=== PATIENT | female | born 1965 | race Caucasian/White ===

== ENCOUNTER 2018-03-03 10:58 | Emergency (ER) | payer OTHER ==
[~2018-03-03] VITALS: Ht 175.3 cm; Wt 96.2 kg
[~2018-03-03 10:58] MED LIST: HYDROCODON-ACE1 EA11 PO; IBUPROFEN800 MG PO; NORCO 5-325 TA1 EACH PO; NORCO 7.5-3251 EACH PO
== END 2018-03-03 14:44 | disposition home or self-care (01) ==
LOC: ED 10:58
DX: M54.9 Dorsalgia, unspecified (principal); F17.200 Nicotine dependence, unspecified, uncomplicated
CPT/HCPCS: 36415; 80053; 81001; 83690; 85025; 99283

== ENCOUNTER 2019-08-29 15:51 | Emergency (ER) | payer OTHER ==
[~2019-08-29] VITALS: Ht 175.3 cm; Wt 96.2 kg
--- OUTSIDE RECORDS SUMMARY | ~2019-08-29 | XMS | Clinical Summary ---
Demographics + + + | Address | [address] [place] [address] | | | [place] [address] | + + + | Home Phone | | + + + | Preferred Language | Unknown | + + + | Marital Status | | + + + | Spiritism Affiliation | Unknown | + + + | Race | Unknown | + + + | Ethnic Group | Unknown | + + + Author + + + | Author | [facility] | | | and [place] | + + + | Organization | [facility] | | | and [place] | + + + | Address | Unknown | + + + | Phone | Unavailable | + + + Support + + + + + | Name | Relationship | Address | Phone | + + + + + | Myrna Prado | ROB[place]E | [address] | | | | | [place] [facility] [place], [place] | | | | | [address] | | + + + + + Care Team Providers + +------+ + | Care Switchboard Manager Name | Role | Phone | + +------+ + | No, Physician | PCP | Unavailable | + +------+ + Allergies No Known Allergies Medications + + + +---------+------+------+-------+ | Medication | Sig | Dispensed | Refills | Star | End | Statu | | | | | | t | Date | s | | | | | | Date | | | + + + +---------+------+------+-------+ | rosuvastatin | Take 40 mg by mouth | | 0 | | | Activ | | (CRESTOR) 40 MG | Daily. | | | | | e | | tablet | | | | | | | + + + +---------+------+------+-------+ | diltiazem (MATZIM | Take 360 mg by mouth | | 0 | | | Activ | | LA) 360 MG 24 hr | Daily. | | | | | e | | tablet | | | | | | | + + + +---------+------+------+-------+ Active Problems + + + | Problem | Noted Date | + + + | Hypertension | 07/15/2011 | + + + | Hyperlipidemia | 07/15/2011 | + + + Immunizations + + + + | Name | Administration Dates | Next Due | + + + + | INFLUENZA PF 20 Y OR | 01/18/2011 | | | >,TRIVALENT | | | | RECOMBINANT | | | + + + + | TDAP, (ADOL/ADULT) | 11/16/2015 | | + + + + Family History + + +------+ + | Medical History | Relation | Name | Comments | + + +------+ + | Cancer | Father | | | + + +------+ + | Cancer | Mother | | thyroid | + + +------+ + | High blood pressure | Mother | | | + + +------+ + | High cholesterol | Mother | | | + + +------+ + + +------+ + + | Relation | Name | Status | Comments | + +------+ + + | Brother | | Alive | x 3 healthy | + +------+ + + | Father | | | colon cancer | + +------+ + + | Mother | | Alive | | + +------+ + + Social History + +-------+ +--------+------+ | Tobacco Use | Types | Packs/Day | Years | Date | | | | | Used | | + +-------+ +--------+------+ | Current Every Day | | 0.5 | | | | Smoker | | | | | + +-------+ +--------+------+ + +---+---+---+ | Smokeless Tobacco: | | | | | Never Used | | | | + +---+---+---+ + + +---------+ + | Alcohol Use | Drinks/Week | oz/Week | Comments | + + +---------+ + | No | | | | + + +---------+ + + + + | Sex Assigned at | Date Recorded | | | | + + + | Not on file | | + + + Last Filed Vital Signs + + + + + | Vital Sign | Reading | Time Taken | Comments | + + + + + | Blood Pressure | 145/95 | 11/16/2015 2:37 PM | | | | | MDT | | + + + + + | Pulse | 97 | 11/16/2015 2:37 PM | | | | | MDT | | + + + + + | Temperature | 36.1 C (97 F) | 11/16/2015 2:37 PM | | | | | MDT | | + + + + + | Respiratory Rate | 18 | 11/16/2015 2:37 PM | | | | | MDT | | + + + + + | Oxygen Saturation | 97% | 11/16/2015 2:37 PM | | | | | MDT | | + + + + + | Inhaled Oxygen | - | - | | | Concentration | | | | + + + + + | Weight | 89.8 kg (198 lb) | 11/16/2015 2:37 PM | | | | | MDT | | + + + + + | Height | 175.3 cm (5' 9") | 11/16/2015 2:37 PM | | | | | MDT | | + + + + + | Body Mass Index | 29.24 | 11/16/2015 2:37 PM | | | | | PDT | | + + + + + Plan of Treatment + + + + + | Health Maintenance | Due Date | Last | Comments | | | | Done | | + + + + + | Cervical Cancer | | | | | Screening (Pap) | 8 | | | + + + + + | Breast Cancer | | | | | Screening | 3 | | | + + + + + | Vaccine: Zoster (1 | | | | | of 2) | 8 | | | + + + + + | Vaccine: Influenza | | 01/19/20 | | | (#1) | 0 | 11 | | + + + + + | Vaccine: | | 11/16/19 | | | Dtap/Tdap/Td (2 - | 6 | 16 | | | Td) | | | | + + + + + Results Not on filefrom Last 3 Months Insurance + +--------+ +--------+ +---------+--------+ | Payer | Benefi | Subscriber | Effect | Phone | Address | Type | | | t Plan | ID | leanna | | | | | | / | | Dates | | | | | | Group | | | | | | + +--------+ +--------+ +---------+--------+ | [employer] | INTERM | [id number] | [phone] | | Indemn | | | [place] | | 014-Pr | 9 | | ity | | | N | | esent | | | | | | CLAIMS | | | | | | | | | | | | | | | | MISSOU | | | | | | | | LA WC | | | | | | + +--------+ +--------+ +---------+--------+ | [facility] | PHP | [id number] | 02/27/19 | [phone] | | PPO | | PLAN | PERSON | | 16-Pre | 5 | | | | | AL | | sent | | | | | | OPEN | | | | | | | | OPTION | | | | | | + +--------+ +--------+ +---------+--------+ | [facility] | UNITED | [id number] | 02/27/19 | [phone] | | PPO | | | | | 12-Pre | 2 | | | | | HEALTH | | sent | | | | | | CARE | | | | | | | | PPO | | | | | | + +--------+ +--------+ +---------+--------+ + +--------+ +--------+ + + | Guarantor Name | Accoun | Relation to | Date | Phone | Billing Address | | | t Type | Patient | of | | | | | | | | | | + +--------+ +--------+ + + | Wilda Nicole | Person | Self | [birth year] | [address] | | | al/Fam | | 1965 | [phone] | [place], [place] | | | [place] | | | 0 (Home) | [address] | + +--------+ +--------+ + + | Wilda Nicole | Person | Self | [birth year] | [address] | | | al/Fam | | 1965 | [phone] | [place], [place] | | | [place] | | | 7 (Home) | [address] | + +--------+ +--------+ + + | Wilda Nicole | Worker | Self | [birth year] | [address] | | | s Comp | | 1965 | [phone] | [place] | | | | | | 7 (Home) | [id number] | | | | | | [phone] | | | | | | | 0 (Work) | | + +--------+ +--------+ + + Advance Directives + + + + + | Type | Date Recorded | Patient | Explanation | | | | Principal Cyber Engineer | | + + + + + | Power of | | | | | Interior Surface Insulation Worker | | | | + + + + + | Advance | 11/16/2015 4:19 | | | | Directive | PM | | | + + + + +
--- OUTSIDE RECORDS SUMMARY | ~2019-08-29 | XMS | Encounter Summary ---
Demographics + + + | Address | [address] [place] [address] | | | [place] [address] | + + + | Home Phone | | + + + | Preferred Language | Unknown | + + + | Marital Status | | + + + | Mandaen Affiliation | Unknown | + + + | Race | Unknown | + + + | Ethnic Group | Unknown | + + + Author + + + | Author | [facility] | | | and [place] | + + + | Organization | [facility] | | | and [place] | + + + | Address | Unknown | + + + | Phone | Unavailable | + + + Support + + + + + | Name | Relationship | Address | Phone | + + + + + | Myrna Prado | [place]E | [address] | | | | | [place] | | | | | [address] | | + + + + + Care Team Providers + +------+ + | Care Transition Assistant Name | Role | Phone | + +------+ + | Juan Ramon Gray | PCP | | + +------+ + Reason for Visit +--------+--------+ + | Reason | Onset | Comments | | | Date | | +--------+--------+ + | Other | 11/09/ | referral appt. | | | 2011 | | +--------+--------+ + Encounter Details +--------+ + + + + | Date | Type | Department | Care Team | Description | +--------+ + + + + | 11/09/ | Telephone | [facility] | Katrina Francisco | Other (referral | | 2011 | | Group - [facility] | Harish, CONTINUOUS DRYOUT OPERATOR HELPER [address] | appt.) | | | | Family Medicine | [facility]. | | | | | [address] [facility] | [place], [place] | | | | | [place], [place] | [address] | | | | | [address] | | | | | | [phone] | | | +--------+ + + + + Social History + +-------+ +--------+------+ [...] on file | | + + + documented as of this encounter Miscellaneous Notes Telephone Encounter - Katrina Francisco LPN - 11/10/2011 3:34 PM TCalled patient and checked to make sure she was seen on the [facility]. She states she seen Dr. Kalyani beal and was given a steroid injection and it really seems to of worked well for her, has shelton crystal helped the pain, informed if any problems to call, she agrees. documented in this encounter Plan of Treatment Not on filedocumented as of this encounter Visit Diagnoses Not on filedocumented in this encounter"
--- OUTSIDE RECORDS SUMMARY | ~2019-08-29 | XMS | Encounter Summary ---
Demographics + + + | Address | [address] [place] [address] | | | [place] [address] | + + + | Home Phone | | + + + | Preferred Language | Unknown | + + + | Marital Status | | + + + | Zoroastrian Affiliation | Unknown | + + + | Race | Unknown | + + + | Ethnic Group | Unknown | + + + Author + + + | Author | [facility] | | | and [place] | + + + | Organization | [facility] | | | and [place] | + + + | Address | Unknown | + + + | Phone | Unavailable | + + + Support + + + + + | Name | Relationship | Address | Phone | + + + + + | Myrna Prado | [place]E | [address] | | | | | [place], [place] | | | | | [address] | | + + + + + Care Team Providers + +------+ + | Care Title Searcher Name | Role | Phone | + +------+ + | Juan Ramon Gray | PCP | | + +------+ + Encounter Details +--------+ + + + + | Date | Type | Department | Care Team | Description | +--------+ + + + + | 07/14/ | Abstract | [facility] | Juan Ramon Gray, | Hypertension; | | 2011 | | Group [facility] | [place] [address] | Hyperlipidemia | | | | Family Medicine | [place] [address] | | | | | [address] | [phone] | | | | | [place] | | | | | | [address] | | | | | | [phone] | | | +--------+ + + + + Social History + +-------+ +--------+------+ | Tobacco Use | Types | Packs/Day | Years | Date | | | | | Used | | + +-------+ +--------+------+ | Never Assessed | | | | | + +-------+ +--------+------+ + + + | Sex Assigned at | Date Recorded | | | | + + + | Not on file | | + + + documented as of this encounter Last Filed Vital Signs + + + + + | Vital Sign | Reading | Time Taken | Comments | + + + + + | Blood Pressure | 129/89 | 01/18/2011 12:38 PM | | | | | MST | | + + + + + | Pulse | - | - | | + + + + + | Temperature | - | - | | + + + + + | Respiratory Rate | - | - | | + + + + + | Oxygen Saturation | - | - | | + + + + + | Inhaled Oxygen | - | - | | | Concentration | | | | + + + + + | Weight | 88 kg (194 lb) | 01/18/2011 12:38 PM | | | | | MST | | + + + + + | Height | - | - | | + + + + + | Body Mass Index | - | - | | + + + + + documented in this encounter Plan of Treatment Not on filedocumented as of this encounter Visit Diagnoses + + | Diagnosis | + + | Hypertension Unspecified essential hypertension | + + | Hyperlipidemia Other and unspecified hyperlipidemia | + + documented in this encounter"
--- OUTSIDE RECORDS SUMMARY | ~2019-08-29 | XMS | Encounter Summary ---
Demographics + + + | Address | [address] [place] [address] | | | [place] [address] | + + + | Home Phone | | + + + | Preferred Language | Unknown | + + + | Marital Status | | + + + | Druze Affiliation | Unknown | + + + | Race | Unknown | + + + | Ethnic Group | Unknown | + + + Author + + + | Author | [facility] | | | and [place] | + + + | Organization | [facility] | | | and [place] | + + + | Address | Unknown | + + + | Phone | Unavailable | + + + Support + + + + + | Name | Relationship | Address | Phone | + + + + + | Myrna Prado | [place]E | [address] | | | | | [place] | | | | | [address] | | + + + + + Care Team Providers + +------+ + | Care Firing Pin Gauger Name | Role | Phone | + +------+ + | Juan Ramon Gray | PCP | | + +------+ + Encounter Details +--------+ + + + + | Date | Type | Department | Care Team | Description | +--------+ + + + + | 01/18/ | Hospital | [address] | Unknown, | | | 2010 | Encounter | [facility] | MD Gabriel . | | | | | GENERIC OP CONV DEPT | [phone] | | | | | [address] | | | | | | [place] | | | | | | [address] | | | | | | [phone] | | | +--------+ + + + [...] + + documented as of this encounter Plan of Treatment Not on filedocumented as of this encounter Procedures + +--------+ + + + | Procedure Name | Priori | Date/Time | Associated Diagnosis | Comments | | | ty | | | | + +--------+ + + + | EGFR | Routin | 01/18/2011 | | Results for this | | | e | 2:42 PM | | procedure are in the | | | | MST | | results section. | + +--------+ + + + | LIPID PANEL | Routin | 01/18/2011 | | Results for this | | | e | 2:42 PM | | procedure are in the | | | | MST | | results section. | + +--------+ + + + | TSH, REFLEX FREE T4 | Routin | 01/18/2011 | | Results for this | | | e | 2:42 PM | | procedure are in the | | | | MST | | results section. | + +--------+ + + + | CBC NO DIFFERENTIAL | Routin | 01/18/2011 | | Results for this | | | e | 2:42 PM | | procedure are in the | | | | MST | | results section. | + +--------+ + + + | COMPREHENSIVE | Routin | 01/18/2011 | | Results for this | | METABOLIC PANEL | e | 2:42 PM | | procedure are in the | | | | MST | | results section. | + +--------+ + + + documented in this encounter Results TSH, Reflex Free T4 (01/18/2011 2:42 PM MST) + +-------+ + + + | Component | Value | Ref Range | Performed | Pathologist | | | | | At | Signature | + +-------+ + + + | TSH | 1.490 | 0.40 - 5.00 | [facility] | | | | | uIU/ml | [facility] | [facility] | | | | | | [facility] | | + +-------+ + + + + + | Specimen | + + | | + + + + + + + | Performing | Address | City/State/Zipcode | Phone Number | | Organization | | | | + + + + + | [facility] | [address] | [place] [address] | [phone] | | [facility] | | | | + + + + + | [facility] | | | | | [facility] | | | | | LABORATORY | | | | + + + + + EGFR (01/18/2011 2:42 PM MST) + + + + + + | Component | Value | Ref Range | Performed | Pathologist | | | | | At | Signature | + + + + + + | eGFR if not | >60Comment: Estimated | >60 mL/min/ | [facility] | | | | GFR reported in | | [facility] | | | [facility]AI | mL/min/1.73m2. For | | HOSPITAL | | | | Americans, | | LABORATORY | | | | multiply the Estimated | | | | | | GFR by 1.21.The | | | | | | Estimated GFR is not | | | | | | valid for patients | | | | | | under20 years of | | | | | | age.Estimated Glomerular | | | | | | Filtration Rate (eGFR) | | | | | | results are likely to be | | | | | | unreliable in patients | | | | | | with rapidly changing | | | | | | renal function or with | | | | | | malnutrition. Some | | | | | | medications may lead to | | | | | | erroneous Estimated GFR | | | | | | results. | | | | + + + + + + + + | Specimen | + + | | + + + + + + + | Performing | Address | City/State/Zipcode | Phone Number | | Organization | | | | + + + + + | [facility] | [address] | [place] [address] | [phone] | | [facility] | | | | + + + + + | [facility] | | | | | [facility] | | | | | LABORATORY | | | | + + + + + Lipid Panel (01/18/2011 2:42 PM MST) + + + + + + | Component | Value | Ref Range | Performed | Pathologist | | | | | At | Signature | + + + + + + | Cholesterol | 155Comment: <200: | 75 - 200 mg/dL | [facility] | | | | [id number] to | | [facility] | | | | 239: Borderline | | [facility] | | | | high>239: | | LABORATORY | | | | High | | | | + + + + + + | Triglycerid | 106Comment: <150: | 30 - 150 mg/dL | [facility] | | | es | [id number] to | | [facility] | | | | 199: Borderline | | [facility]OS[facility] | | | | [id number] to 499: | | LABORATORY | | | | High>499: | | | | | | Very High | | | | + + + + + + | HDL | 59Comment: <40: | 40 - 59 mg/dL | [facility] | | | | Low40 to 59: | | [facility] | | | | Normal>59: | | [facility] | | | | HighHDL Cholesterol | | LABORATORY | | | | greater than or equal to | | | | | | 60 mg/dL is considered | | | | | | a "negative" risk | | | | | | factor, serving to | | | | | | remove one risk factor | | | | | | from the total count. | | | | + + + + + + | LDL, | 75Comment: <100: | 0 - 129 mg/dL | [facility] | | | Calculated | Oudssuh381 to 129: | | [facility] | | | | Near or above | | HOSPITAL | | | | [id number] to 159: | | LABORATORY | | | | Borderline [id number] to | | | | | | 189: High>189: | | | | | | Very HighFor | | | | | | further detail, see | | | | | | National Cholesterol | | | | | | Education Program Adult | | | | | | Treatment Panel III (ATP | | | | | | III) Guidelines.AJIME | | | | | | 2000; 285: 4479-0164; | | | | | | orhttp://www.nhlbi.nih | | | | | | .gov (ATP III | | | | | | Cholesterol Guidelines) | | | | + + + + + + + + | Specimen | + + | | + + + + + + + | Performing | Address | City/State/Zipcode | Phone Number | | Organization | | | | + + + + + | [facility] | [address] | [place] [address] | [phone] | | [facility] | | | | + + + + + | [facility] | | | | | [facility] | | | | | LAB[facility]ATORY | | | | + + + + + CBC no Differential (01/18/2011 2:42 PM MST) + + + + + + | Component | Value | Ref Range | Performed | Pathologist | | | | | At | Signature | + + + + + + | WBC | 8.4 | 4.0 - 11.0 K/uL | [facility] | | | | | | [facility] | | | | | | [facility] | | + + + + + + | RBC | 5.36 (H) | 3.80 - 5.20 | [facility] | | | | | M/uL | [facility] | | | [facility] | | | | | | [facility] | | + + + + + + | Hemoglobin | 15.4 | 11.6 - 15.5 | [facility] | | | | | g/dL | [facility] | | | | [facility] | | | | | | [facility] | | + + + + + + | Hematocrit | 46.6 (H) | 35.0 - 46.0 % | [facility] | | | | | | [facility] | | | | | | [facility] | | + + + + + + | MCV | 86.8 | 80.0 - 100.0 fL | [facility] | | | | | | [facility] | | | | [facility] | | | | | | [facility] | | + + + + + + | MCH | 28.7 | 27.0 - 34.0 pg | [facility] | | | | | | [facility] | [facility] | | | | | | [facility] | | + + + + + + | MCHC | 33.1 | 32.0 - 35.5 | [facility] | | | | | g/dL | [facility] | | | | [facility] | | | | | | [facility] | | + + + + + + | RDW-CV | 13.6 | 11.0 - 15.0 % | [facility] | | | | | | [facility] | | | | | | [facility] | | + + + + + + | Platelet | 248 | 150 - 400 K/uL | [facility] | | | Count | | | [facility] | | | | | | [facility] | | + + + + + + | % | 61.3 | 38 - 78 % | [facility] | | | Neutrophils | | | [facility] | [facility] | | | | | | [facility] | | + + + + + + | LYMPH % | 30.6 | 21 - 49 % | [facility] | | | | | | [facility] | | | | | | [facility] | | + + + + + + | % Monocytes | 5.6 | 3 - 11 % | [facility] | | | | | | [facility] | | | | | | [facility] | | + + + + + + | % | 1.7 | 0 - 7 % | [facility] | | | Eosinophils | | | [facility] | | [facility] | | | | | | [facility] | | + + + + + + | % Basophils | 0.8 | 0.0 - 2.0 % | [facility] | | | | | | [facility] | | | | | | [facility] | | + + + + + + | Absolute | 5.1 | 2.0 - 7.3 K/uL | [facility] | | | Neutrophils | | | [facility] | | | | | | [facility] | | + + + + + + | Absolute | 2.6 | 1.0 - 3.4 K/uL | [facility] | | | Lymphocytes | | | [facility] | [facility] | | | | | | [facility] | | + + + + + + | Absolute | 0.5 | 0.0 - 0.8 K/uL | [facility] | | | Monocytes | | | [facility] | | | | | | [facility] | | + + + + + + | Absolute | 0.1 | 0.0 - 0.5 K/uL | [facility] | | | Eosinophils | | | [facility] | | | | | | [facility] | | + + + + + + | Absolute | 0.1 | 0.0 - 0.1 K/uL | [facility] | | | Basophils | | | [facility] | [facility] | | | | | | [facility] | | + + + + + + + + | Specimen | + + | | + + + + + + + | Performing | Address | City/State/Zipcode | Phone Number | | Organization | | | | + + + + + | [facility] | [address] | [place] [address] | [phone] | | [facility] | | | | + + + + + | [facility] | | | | | [facility] | | | | | [facility] | | | | + + + + + Comprehensive Metabolic Panel (01/18/2011 2:42 PM MST) + +---------+ + + + | Component | Value | Ref Range | Performed | Pathologist | | | | | At | Signature | + +---------+ + + + | Glucose | 95 | 65 - 99 mg/dL | [facility] | | | | | | [facility] | | | | | | [facility] | | + +---------+ + + + | BUN | 9 | 7 - 23 mg/dL | [facility] | | | | | | [facility] | | | | | | [facility] | | + +---------+ + + + | Creatinine | 0.8 | 0.6 - 1.2 mg/dL | [facility] | | | | | | [facility] | | | | | | [facility] | | + +---------+ + + + | BUN/Creatin | 11.25 | 10.00 - 20.00 | [facility] | | | ine Ratio | | RATIO | [facility] | | | | | | [facility] | | + +---------+ + + + | Na | 139 | 135 - 145 | [facility] | | | | | mmol/L | [facility] | | | | | | [facility] | | + +---------+ + + + | K | 4.0 | 3.5 - 5.0 | [facility] | | | | | mmol/L | [facility] | | | | | | [facility] | | + +---------+ + + + | Cl | 106 | 98 - 109 mmol/L | [facility] | | | | | | [facility] | | | | | | [facility] | | + +---------+ + + + | CO2 | 24.0 | 22.0 - 31.0 | [facility] | | | | | mmol/L | [facility] | [facility] | | | | | | [facility] | | + +---------+ + + + | Anion Gap | 9 | 5 - 16 mmol/L | [facility] | | | | | | [facility] | [facility] | | | | | | [facility] | | + +---------+ + + + | Calcium | 9.3 | 8.5 - 10.5 | [facility] | | | | | mg/dL | [facility] | | | | | | [facility] | | + +---------+ + + + | Total | 8.6 (H) | 6.3 - 8.0 g/dL | [facility] | | | Protein | | | [facility] | | | | | | [facility] | | + +---------+ + + + | Albumin | 4.7 | 3.5 - 5.0 g/dL | [facility] | | | | | | [facility] | | | | | | [facility] | | + +---------+ + + + | Globulin | 3.9 (H) | 1.3 - 3.4 g/dL | [facility] | | | | | | [facility] | | | | | | [facility] | | + +---------+ + + + | Albumin/Gauri | 1.2 | 1 - 2 RATIO | [facility] | | | bulin Ratio | | | [facility] | | | | | | [facility] | | + +---------+ + + + | Bilirubin | 0.5 | 0.1 - 1.5 mg/dL | [facility] | | | Total | | | [facility] | | | | | | [facility] | | | | | | LABORATORY | | + +---------+ + + + | AST | 23 | 5 - 40 U/L | [facility] | | | | | | [facility] | | | | | | LABORATORY | | + +---------+ + + + | ALT | 46 | 5 - 50 U/L | [facility] | | | | | | [facility] | | | | | [facility] | | | | | | LABORATORY | | + +---------+ + + + | Alkaline | 72 | 38 - 110 U/L | [facility] | | | Phosphatase | | | [facility] | | | | | [facility] | | | | | | LABORATORY | | + +---------+ + + + | Osmolality | 276 | 275 - 300 | [facility] | | | Calc | | mOsm/kg | [facility] | | | [facility] | | | | | | LABORATORY | | + +---------+ + + + + + | Specimen | + + | | + + + + + + + | Performing | Address | City/State/Zipcode | Phone Number | | Organization | | | | + + + + + | [facility] | [address] | [place] [address] | [phone] | | [facility] | | | | + + + + + | [facility] | | | | | [facility] | | | | | LABORATORY | | | | + + + + + documented in this encounter Visit Diagnoses Not on filedocumented in this encounter
--- OUTSIDE RECORDS SUMMARY | ~2019-08-29 | XMS | Encounter Summary ---
Demographics + + + | Address | [address] [place] [address] | | | [place] [address] | + + + | Home Phone | | + + + | Preferred Language | Unknown | + + + | Marital Status | | + + + | Islam Affiliation | Unknown | + + + | Race | Unknown | + + + | Ethnic Group | Unknown | + + + Author + + + | Author | [facility] | | | and [place] | + + + | Organization | [facility] | | | and [place] | + + + | Address | Unknown | + + + | Phone | Unavailable | + + + Support + + + + + | Name | Relationship | Address | Phone | + + + + + | Myrna Prado | ROBBIE | [address] | | | | | [place] | | | | | [address] | | + + + + + Care Team Providers + +------+ + | Care E Commerce Project Manager Name | Role | Phone | + +------+ + | Juan Ramon Luna | PCP | | + +------+ + Reason for Visit + +--------+ + | Reason | Onset | Comments | | | Date | | + +--------+ + | Appointment | 10/27/ | | | | 2011 | | + +--------+ + Encounter Details +--------+ + + + + | Date | Type | Department | Care Team | Description | +--------+ + + + + | 10/27/ | Telephone | [facility] | Katrina Corrales | Appointment | | 2011 | | Group - Latrell Younger | Harish, COMPUTER ASSEMBLER [address] | | | | | Family Medicine | [facility]. | | | | | [address] [facility] | [place], [place] | | | | | [place], [place] | [address] | | | | | [address] | | | | | | [phone] | | | +--------+ + + + [...] encounter Miscellaneous Notes Telephone Encounter - Katrina Corrales LPN - 11/01/2011 3:09 PM MDTPatient seen today in the office, referral had not been processed at this time. Ortho was called and appointme nt setup for this , 11-03-11 at 0945 w/ Dr. Lemos. elephone Encounter - Katrina Corrales LPN - 10/28/2011 9:48 AM MDTPatient called and informed of the MRI results and that Juan Ramon would do a referral to Ortho. Informed patient either [facility] or Ortho will call her w/ her appointme nt. elephone En counter - Ktarina Corrales LPN - 10/28/2011 9:47 AM MDTMessage copied by CHER CORRALES on MonOct 28, 2011 0999 ------ Message from: JUAN RAMON LUNA Created: MonOct 25, 2011 1350 There appears to have a irregular signal to the Supraspinatus. Will make a referral to ortho for evaluation. documented in this encounter Plan of Treatment Not on filedocumented as of this encounter Visit Diagnoses Not on filedocumented in this encounter"
--- OUTSIDE RECORDS SUMMARY | ~2019-08-29 | XMS | Encounter Summary ---
Demographics + + + | Address | [address] [place] [address] | | | [place] [address] | + + + | Home Phone | | + + + | Preferred Language | Unknown | + + + | Marital Status | | + + + | Yazidi Affiliation | Unknown | + + + | Race | Unknown | + + + | Ethnic Group | Unknown | + + + Author + + + | Author | [facility] | | | and [place] | + + + | Organization | [facility] | | | and [...] [place] | | | | | [address] | | + + + + + Care Team Providers + +------+ + | Care Education Paraprofessional Name | Role | Phone | + +------+ + | Juan Ramon Luna | PCP | | + +------+ + Reason for Visit + + + | Reason | Comments | + + + | Shoulder Pain | Right, states the last couple weeks can not hardly lift her arm, | | | does not know how she injuried it. | + + + | Insomnia | d/t shoulder pain | + + + Encounter Details +--------+---------+ + + + | Date | Type | Department | Care Team | Description | +--------+---------+ + + + | 10/03/ | Office | [facility] | Juan Ramon Luna, | Bursitis (Primary | | 2011 | Visit | Group - Latrell Younger | [place] [address] | Dx) | | | | Family Medicine | [place] [address] | | | | | [address] | [phone] | | | | | [place], [place] | | | | | | [address] | | | | | | [phone] | | | +--------+---------+ + + + Social History + +-------+ [...] + + + | Blood Pressure | 114/70 | 10/04/2011 2:57 PM | | | | | MDT | | + + + + + | Pulse | 80 | 10/04/2011 2:57 PM | | | | | MDT | | + + + + + | Temperature | 37.3 C (99.2 F) | 10/04/2011 2:57 PM | | | | | MDT | | + + + + + | Respiratory Rate | 18 | 10/04/2011 2:57 PM | | | | | MDT | | + + + + + | Oxygen Saturation | - | - | | + + + + + | Inhaled Oxygen | - | - | | | Concentration | | | | + + + + + | Weight | 86.2 kg (190 lb) | 10/04/2011 2:57 PM | | | | | MDT | | + + + + + | Height | - | - | | + + + + + | Body Mass Index | - | - | | + + + + + documented in this encounter Patient Instructions Patient Instructions Juan Ramon Luna PA - 10/04/2011 4:00 PM Yin | Back SP BURSITIS The larger joints of the body are surrounded by bursa . These are small, flat fluid-f illed sacs which help the gliding motion of the muscles and tendons over the joints. Bursitis is an inflammation of the bursa due to injury, overuse of the joint, or infection of the bursa itself. Symptoms include pain and tenderness over a joint that is made worse wi th movement. Bursitis is treated with an anti-inflammatory medicine and by resting the joint. More sever e cases require injection of medicine directly into the bursa. HOME CARE: 1. Apply an ice pack (ice cubes in a plastic bag, wrapped in a towel) over the injured area for 20 minutes every 1-2 hours the first day. Continue this 3-4 times a day until the pain and swelling improves. 2. Rest the painful joint and protect it from movement. This will allow the inflammation to heal faster. 3. You may take ibuprofen (Motrin, Advil) or naproxen (Aleve, Naprosyn) to treat pain and i nflammation, unless another medicine was prescribed. If you can't take these medicines, acet aminophen (Tylenol) may help with the pain, but does not treat inflammation. [NOTE: If you h ave chronic liver or kidney disease or ever had a stomach ulcer or GI bleeding, talk with yo doctor before using these medicines.] 4. As your symptoms improve, begin gradual motion at the joint. Do not overuse the joint, w hich may cause the symptoms to flare up again. FOLLOW UP with your doctor if not improving after three days of treatment. GET PROMPT MEDICAL ATTENTION if any of the following occur: Redness over the painful area Increasing pain or swelling at the joint Fever of 100.4F (38C) or higher, or as directed by your healthcare provider [phone] [facility], [address] [place] [address], [place] [address]. All rights reserve d. This information is not intended as a substitute for professional medical care. Always fo llow your healthcare professional's instructions. documented in this encounter Progress Notes Juan Ramon Luna PA - 10/11/2011 11:33 AM MDT Addended by: JUAN RAMON LUNA on: 10/11/2011 11:33 Modules accepted: Orders uan Ramon Luna PA - 10/04/2011 3:16 PM MDT Subjective: Patient ID: Wilda Baker is a 45 y.o. female. Shoulder Pain Incident location: States very busy unsure when and where the pain started. The right shoul walter is affected. The incident occurred more than 1 week ago (on and off for 3-4 years.). The injury mechanism was repetitive motion and overhead work. The quality of the pain is descri bed as burning, cramping, aching, shooting and stabbing. The pain does not radiate. The pain is at a severity of 6/10 (pain level depends on activity.). The pain is moderate. Associate d symptoms include muscle weakness. Pertinent negatives include no chest pain, numbness or t ingling. The symptoms are aggravated by movement, overhead lifting and palpation. She has tr ied ice for the symptoms. The treatment provided mild relief. Patient's medications, allergies, past medical, surgical, social and family histories were reviewed and updated as appropriate. Review of Systems Cardiovascular: Negative for chest pain. Neurological: Negative for tingling and numbness. Objective: Physical Exam Constitutional: She appears well-developed and well-nourished. Cardiovascular: Normal rate and regular rhythm. Pulmonary/Chest: Effort normal and breath sounds normal. Musculoskeletal: Right shoulder: She exhibits decreased range of motion, tenderness and bony tenderness . She exhibits no effusion, no crepitus and no deformity. Neurological: She is alert. Skin: Skin is warm and dry. The shoulder was sterily cleanse and injection of 5 cc of Kenalog and 2% lidocaine was used . Patient tolerated procedure well. Consent form was obtain prior to procedure. Assessment: 1. Bursitis Plan: Will have the patient use a sling for the next 1-2 days. Return on an as needed basis. documented in this en counter Miscellaneous Notes Miscellaneous - ILDEFONSO NAJERA - 10/04/2011 1:00 AM MDT documented in this encounter Plan of Treatment Not on filedocumented as of this encounter Visit Diagnoses + + | Diagnosis | + + | Bursitis - Primary Other bursitis disorders | + + documented in this encounter"
--- OUTSIDE RECORDS SUMMARY | ~2019-08-29 | XMS | Encounter Summary ---
Demographics + + + | Address | [address] [place] [address] | | | [place] [address] | + + + | Home Phone | | + + + | Preferred Language | Unknown | + + + | Marital Status | | + + + | Jain Affiliation | Unknown | + + + | Race | Unknown | + + + | Ethnic Group | Unknown | + + + Author + + + | Author | [facility] | | | and [place] | + + + | Organization | [facility] | | | and [place] | + + + | Address | Unknown | + + + | Phone | Unavailable | + + + Support + + + + + | Name | Relationship | Address | Phone | + + + + + | Myrna Prado | ROBBIE | [address] | | | | | [place] | | | | | [address] | | + + + + + Care Team Providers + +------+ + | Care Sap Abap Developer Name | Role | Phone | + +------+ + | No, Physician | PCP | Unavailable | + +------+ + Reason for Visit + + + | Reason | Comments | + + + | Knee Pain | | + + + Encounter Details +--------+ + + + + | Date | Type | Department | Care Team | Description | +--------+ + + + + | 08/10/ | Emergency | [facility] | Mounika Trung | Knee contusion, | | 2013 | | [facility] | MD Ron [address] | right, initial | | | | EMERG[facility]ENTER | [facility] | encounter (Primary | | | | [address] [facility] | [place] [address] | Dx) | | | | [place], [place] | [phone] | | | | | [address] | | | | | | [phone] | | | +--------+ + + + [...] + + + | Blood Pressure | 140/80 | 08/10/2013 8:05 AM | | | | | MDT | | + + + + + | Pulse | 90 | 08/10/2013 8:05 AM | | | | | MDT | | + + + + + | Temperature | 36.2 C (97.2 F) | 08/10/2013 6:39 AM | | | | | MDT | | + + + + + | Respiratory Rate | 16 | 08/10/2013 8:05 AM | | | | | MDT | | + + + + + | Oxygen Saturation | 98% | 08/10/2013 8:05 AM | | | | | MDT | | + + + + + | Inhaled Oxygen | - | - | | | Concentration | | | | + + + + + | Weight | 74.8 kg (165 lb) | 08/10/2013 6:39 AM | | | | | MDT | | + + + + + | Height | 175.3 cm (5' 9") | 08/10/2013 6:39 AM | | | | | MDT | | + + + + + | Body Mass Index | 24.37 | 08/10/2013 6:39 AM | | | | | PDT | | + + + + + documented in this encounter Discharge Instructions AttachmentsThe following attachments cannot be sent through Care Everywhere.CONTUSION, ROBERT R EXTREMITY (CROATIAN)documented in this encounter Medications at Time of Discharge + + + +---------+--------+ + | Medication | Sig | Dispensed | Refills | Start | End Date | | | | | | Date | | + + + +---------+--------+ + | diltiazem (MATZIM | Take 360 mg by mouth | | 0 | | | | LA) 360 MG 24 hr | Daily. | | | | | | tablet | | | | | | + + + +---------+--------+ + | rosuvastatin | Take 40 mg by mouth | | 0 | | | | (CRESTOR) 40 MG | Daily. | | | | | | tablet | | | | | | + + + +---------+--------+ + documented as of this encounter ED Notes Trung Ribera MD - 08/10/2013 6:54 AM MDT [facility] Wilda Baker Emergency Department Encounter Note [id number] Juan Ramon Gray History CC: Knee Pain ED Triage Notes Vero Trotter RN 08/10/2013 6:39 Patient states she fell on hurting her right knee. Patient states swelling has go ne down but continuing to have pain. No blood thinners HPI: Wilda Baker is a 47 y.o. female who presents to the ED for evaluation of right kne e injury. This occurred 2 days ago at work. She tripped on a box and fell forward landing on her right knee. She is able to walk on this but has had persistent discomfort. It's wor se when she is walking or bends the knee. She does have some swelling. She feels like ther e is a groove that runs down the kneecap and thinks this might be a fracture. She denies an y numbness or tingling. She did not sustain any other significant injury. She has no histo ry of prior knee injury. Review of Systems: A complete review of systems was negative for acute findings, except as noted in the HPI Past Medical History: Past Medical History Diagnosis Date Hypertension Hyperlipidemia Surgical History: Past Surgical History Procedure Date Carpal tunnel release 2008 Medications: Current Outpatient Rx Name Route Sig Dispense Refill DILTIAZEM HCL ER COATED BEADS 360 MG PO TB24 Oral Take 360 mg by mouth Daily. ROSUVASTATIN CALCIUM 40 MG PO TABS Oral Take 40 mg by mouth Daily. ALLERGIES: No Known Allergies Social History: She reports that she has been smoking. She has never used smokeless tobac co.. She reports that she does not drink alcohol. Family History: Noncontributory. Physical Exam VITAL SIGNS: BP 137/77 | Pulse 93 | Temp 36.2 C (97.2 F) (Temporal) | Resp 18 | Ht 1.75 3 m (5' 9") | Wt 74.844 kg (165 lb) | BMI 24.36 kg/m2 | SpO2 96% Constitutional: Well-developed. Well-nourished. No acute distress. Non-toxic. Skin: Warm, Dry, No rash. Extremities: Tenderness over the patella with some bruising. There is crepitance in the bu rsa with flexion extension. The knee is stable to varus and valgus stressing. No laxity of the ACL. Negative Lockman's. Intact distal pulses, no edema, no cyanosis. Neurologic: Alert & oriented. Normal motor function. Normal sensory function. No focal def icits noted. ED Course: Wilda Baker presented to the ED for evaluation, and she was triaged to room 17. I revie wed the nursing notes, and she was evaluated by me. Records Reviewed: Nursing notes. Studies: Pertinent labs & imaging studies were reviewed. (See chart for details) Imaging: Knee X-Ray Interpreted by: Trung Ribera Findings: Right knee: No fracture, Normal alignment, No foreign body ED Course, Procedures, and Medical Decision Making: This patient presents for evaluation of right knee injury. She is neurovascularly intact. There is no signs of compartment syndrome. There is no deformity. Radiograph is negative for any signs of patellar fracture. I suspect she has a contusion or possibly some prepatel lar bursitis. At this point she stable for outpatient followup. Indications for emergency reevaluation were reviewed. Impression: 1. Knee contusion, right, initial encounter Disposition and Plan: The patient was discharged home in stable condition. Trung Ribera MD 08/10/13 0737 docum ented in this encounter Miscellaneous Notes Plan of Care - [facility]ONSO [facility] - 08/12/2013 1:00 AM MDT D Triage Notes - Vero Trotter RN - 08/10/2013 6:38 AM MDTPatient states she fell on hurting her right knee. Patient states swelling has gone down but continuing to have pain. No blood thinners documented in this encounter Plan of Treatment Not on filedocumented as of this encounter Procedures + +--------+ + + + | Procedure Name | Priori | Date/Time | Associated Diagnosis | Comments | | | ty | | | | + +--------+ + + + | XR KNEE RIGHT 4 + VW | STAT | 08/10/2013 | | Results for this | | | | 7:28 AM | | procedure are in the | | | | MDT | | results section. | + +--------+ + + + documented in this encounter Results XR Knee Right 4 + Vw (08/10/2013 7:28 AM MDT) + + | Specimen | + + | | + + + + + | Impressions | Performed At | + + + | Prepatellar soft tissue swelling noted. No current evidence for | MISCELANIOUS | | fracture or significant malalignment. [facility] | LAB | + + + + + + | Narrative | Performed At | + + + | DATE OF : 1965 STUDY: AP notch, sunrise and | MISCELANIOUS | | lateral views (four views), right knee. DATE OF SERVICE: | LAB | | 08/10/2013, 0718 hours. INDICATION: Knee pain. The patient | | | is status post fall with predominant patellar pain. FINDINGS: | | | There is some mild prepatellar soft tissue swelling. No displaced | | | patellar fracture is currently identified. I do not identify | | | evidence for joint effusion. | | + + + + + | Procedure Note | + + | Villa Salcido MD - 08/10/2013 8:12 AM MARYLU DATE OF : 1965 | | | | STUDY: AP notch, sunrise and lateral views (four views), right knee. | | | | DATE OF SERVICE: 08/10/2013, 0718 hours. | | | | INDICATION: Knee pain. The patient is status post fall with | | predominant patellar pain. | | | | FINDINGS: There is some mild prepatellar soft tissue swelling. No | | displaced patellar fracture is currently identified. I do not identify | | evidence for joint effusion. | | | | IMPRESSION: Prepatellar soft tissue swelling noted. No current | | evidence for fracture or significant malalignment. | | | | [facility] | + + + +---------+ + + | Performing | Address | City/State/Zipcode | Phone Number | | Organization | | | | + +---------+ + + | [facility] | | | [phone] | + +---------+ + + | [facility] LAB | | | [phone] | + +---------+ + + documented in this encounter Visit Diagnoses + + | Diagnosis | + + | Knee contusion, right, initial encounter - Primary | + + documented in this encounter
--- OUTSIDE RECORDS SUMMARY | ~2019-08-29 | XMS | Encounter Summary ---
Demographics + + + | Address | [address] [place] [address] | | | [place] [address] | + + + | Home Phone | | + + + | Preferred Language | Unknown | + + + | Marital Status | | + + + | Taoism Affiliation | Unknown | + + + | Race | Unknown | + + + | Ethnic Group | Unknown | + + + Author + + + | Author | [facility] | | | and [place] | + + + | Organization | [facility] | | | and [place] | + + + | Address | Unknown | + + + | Phone | Unavailable | + + + Support + + + + + | Name | Relationship | Address | Phone | + + + + + | Myrna Prado | ROBBIE | [address] | | | | | [place] | | | | | [address] | | + + + + + Care Team Providers + +------+ + | Care Mock Up Assembler Name | Role | Phone | + +------+ + | Juan Ramon Gray | PCP | | + +------+ + Reason for Referral Evaluate & Treat (Routine) +--------+ + + + + + | Status | Reason | Specialty | Diagnoses / | Referred By | Referred To | | | | | Procedures | Contact | Contact | +--------+ + + + + + | Closed | Specialty | Orthopedic | Diagnoses | Isaac | [place], | | | Services | Surgery | Shoulder | ROSIE Delatorre | Todd Pedersen MD | | | Required | | pain | [address] | [address] | | | | | | [address] | [address] | | | | | | [place] | [place] | | | | | | [address] | [address] Phone: | | | | | | Phone: | [phone] | | | | | | [phone] | Fax: | | | | | | Fax: | [phone] | | | | | | [phone] | | +--------+ + + + + + Reason for Visit + + + | Reason | Comments | + + + | Follow-up | | + + + Encounter Details +--------+---------+ + + + | Date | Type | Department | Care Team | Description | +--------+---------+ + + + | 10/31/ | Office | [facility] | Juan Ramon Gray, | Shoulder pain | | 2012 | Visit | Group - Latrell Batistaek | [place] [address] | (Primary Dx) | | | | Family Medicine | [place] [address] | | | | | [address] | [phone] | | | | | [place], [place] | | | | | | [address] | | | | | | [phone] | | | +--------+---------+ + + + [...] + + + | Blood Pressure | 126/78 | 11/01/2011 11:16 AM | | | | | MDT | | + + + + + | Pulse | 72 | 11/01/2011 11:16 AM | | | | | MDT | | + + + + + | Temperature | 37.1 C (98.7 F) | 11/01/2011 11:16 AM | | | | | MDT | | + + + + + | Respiratory Rate | 20 | 11/01/2011 11:16 AM | | | | | MDT | | + + + + + | Oxygen Saturation | - | - | | + + + + + | Inhaled Oxygen | - | - | | | Concentration | | | | + + + + + | Weight | 86.7 kg (191 lb 3.2 | 11/01/2011 11:16 AM | | | | oz) | MDT | | + + + + + | Height | - | - | | + + + + + | Body Mass Index | - | - | | + + + + + documented in this encounter Progress Notes Juan Ramon Gray PA - 11/02/2011 6:03 PM MDTFormatting of this note might be different fro m the original. Subjective: Patient ID: Wilda Baker is a 46 y.o. female. Shoulder Pain The incident occurred at work. The right shoulder is affected. The incident occurred more t pereyra 1 week ago. The injury mechanism was repetitive motion. The quality of the pain is descr ibed as aching and cramping. The pain radiates to the right arm. The pain is at a severity o f 6/10 (worse with movement.). Pertinent negatives include no chest pain, muscle weakness, n umbness or tingling. The symptoms are aggravated by movement and overhead lifting. She has t ried NSAIDs for the symptoms. The treatment provided mild relief. Patient's medications, allergies, past medical, surgical, social and family histories were reviewed and updated as appropriate. Review of Systems Respiratory: Negative for shortness of breath. Cardiovascular: Negative for chest pain. Musculoskeletal: Positive for arthralgias. Negative for back pain and joint swelling. Neurological: Negative for tingling and numbness. Objective: Physical Exam Constitutional: She appears well-developed and well-nourished. No distress. Cardiovascular: Normal rate and normal heart sounds. Pulmonary/Chest: Effort normal and breath sounds normal. Musculoskeletal: She exhibits tenderness. She exhibits no edema. Right shoulder: She exhibits decreased range of motion, tenderness, bony tenderness an d pain. She exhibits no swelling, no effusion, no crepitus, no deformity, normal pulse and n ormal strength. Arms: Skin: She is not diaphoretic. Assessment: 1. Shoulder pain Ambulatory referral to Orthopedic Surgery Plan: Note was given to her at this time for limited hours and duties at work. documented in this en counter Plan of Treatment + + +--------+ + + | Name | Type | Priori | Associated Diagnoses | Order Schedule | | | | ty | | | + + +--------+ + + | Ambulatory referral | Outpatient | Routin | Shoulder pain | Ordered: 11/01/2011 | | to Orthopedic | Referral | e | | | | Surgery | | | | | + + +--------+ + + documented as of this encounter Visit Diagnoses + + | Diagnosis | + + | Shoulder pain - Primary Pain in joint, shoulder region | + + documented in this encounter"
--- OUTSIDE RECORDS SUMMARY | ~2019-08-29 | XMS | Encounter Summary ---
Demographics + + + | Address | [address] [place] [address] | | | [place] [address] | + + + | Home Phone | | + + + | Preferred Language | Unknown | + + + | Marital Status | | + + + | Nondenominational Affiliation | Unknown | + + + | Race | Unknown | + + + | Ethnic Group | Unknown | + + + Author + + + | Author | [facility] | | | and [place] | + + + | Organization | [facility] | | | and [place] | + + + | Address | Unknown | + + + | Phone | Unavailable | + + + Support + + + + + | Name | Relationship | Address | Phone | + + + + + | Myrna Prado | ROBBIE | [address] | | | | | [place] | | | | | [address] | | + + + + + Care Team Providers + +------+ + | Care Social Work Instructor Name | Role | Phone | + +------+ + | No, Physician | PCP | Unavailable | + +------+ + Reason for Visit + + + | Reason | Comments | + + + | Animal Bite | | + + + Encounter Details +--------+ + + + + | Date | Type | Department | Care Team | Description | +--------+ + + + + | 11/15/ | Emergency | [facility] | Harriet, | Dog bite of arm, | | 2015 | | [facility] [place] | Josh Cottrell DO | right, initial | | | | [facility] [address] | encounter (Primary | | | | [address] [place] | Dx) | | | | [place] | [id number] | | | | | [address] | | | | | | [phone] | | | +--------+ + + + [...] + documented in this encounter Discharge Instructions Josh Elizabeth, - 11/16/2015Ignacio hillary need to come out in 7-10 days. Having concerning symptoms including fever severe arm pain return to the ER otherwise can f ollow up with her regular doctor. AttachmentsThe following attachments cannot be sent through Care Everywhere.DOG BITE (ENGLI CHRISTA)LACERATION, SCALP: SUTURES OR PATRICIA (CHINESE)documented in this encounter Medications at Time of Discharge + + + +---------+ + + | Medication | Sig | Dispensed | Refills | Start | End Date | | | | | | Date | | + + + +---------+ + + | diltiazem (MATZIM | Take 360 mg by mouth | | 0 | | | | LA) 360 MG 24 hr | Daily. | | | | | | tablet | | | | | | + + + +---------+ + + | rosuvastatin | Take 40 mg by mouth | | 0 | | | | (CRESTOR) 40 MG | Daily. | | | | | | tablet | | | | | | + + + +---------+ + + | | Take 1 tablet by | 14 | 0 | 11/16/19 | | | amoxicillin-clavulan | mouth 2 times daily | tablet | | 16 | 6 | | ate (AUGMENTIN) | for 7 days. | | | | | | 875-125 mg per | | | | | | | tablet | | | | | | + + + +---------+ + + documented as of this encounter ED Notes Josh Larios, - 11/16/2015 4:40 PM MDTAssociated Order(s): LACERATION RE PAIR [facility]: Emergency Department Note PATIENT: Wilda Nicole ([id number]) : 1965 DATE OF SERVICE: 11/16/15 AUTHOR: Josh Larios DO 11/16/2015 PCP: No Physician on file The patient arrived by: Private vehicle History is obtained by: Patient Chief complaint: Dog bite History of present illness: Patient complaining of a dog bite happened at her mother's home it was a known dog vaccinations. Patient was visiting her mother with her dog and mother s tarts present around the started fighting she tried to separate them was bitten in the right forearm. Patient was seen at [facility] but sent to the ER due to lack of material s to close the wound. Patient is not up-to-date with her tetanus. Patient has no other com plaints at this time denies loss of sensation or use of the hand. Panel control was called and dog was put down. ROS: 10 point review of systems is negative aside from that listed in history of present il lness. PMH: has a past medical history of Hypertension and Hyperlipidemia. PSH: has past surgical history that includes Carpal tunnel release; cyst removal; and ort hopeic surgery. Family History: family history includes Cancer in her father and mother; High blood pressu re in her mother; High cholesterol in her mother. Social History: reports that she has been smoking. She has never used smokeless tobacco. She reports that she does not drink alcohol or use illicit drugs. Current Medications: Current Outpatient Rx Name Route Sig Dispense Refill amoxicillin-clavulanate (AUGMENTIN) 875-125 mg per tablet Oral Take 1 tablet by mouth 2 times daily for 7 days. 14 tablet 0 diltiazem (MATZIM LA) 360 MG 24 hr tablet Oral Take 360 mg by mouth Daily. rosuvastatin (CRESTOR) 40 MG tablet Oral Take 40 mg by mouth Daily. Allergies: No Known Allergies PHYSICAL EXAM: VITAL SIGNS: Temp: 36.1 C (97 F) Pulse: 97 Resp: 18 SpO2: 97 % BP: (!) 145/95 mmHg GENERAL: Alert and oriented 4 minimal distress well groomed well-nourished well-hydrated HEAD: Normocephalic and atraumatic. EYES: Pupils equal, round and reactive to light and accommodation. Extraocular movements a re intact. NECK: Supple, no lymphadenopathy, full range of motion without pain. No nuchal rigidity CHEST: Nontender to palpation. No crepitus. No external signs of trauma. LUNGS: Clear to auscultation bilaterally. No accessory muscle use. Answering questions wi th full sentences. CARDIAC: Regular rate and rhythm without murmur, rub or gallop, pulses intact x4 ABDOMEN: Soft, nontender, nondistended, no organomegaly, no pulsatile mass, bowel tones are present. MUSCULOSKELETAL: Large 5 cm gaping lack right forearm full-thickness skin with subcu tissue involved exposed muscle sheath no sheath involvement, but has exposed lacerated vein with h emostasis NEURO: Cranial nerves II through XII are grossly intact. Normal sensation throughout derma tomes of the body, moving all extremities. SKIN: Clear without rash, no purpura or petechia. RADIOLOGY: Recent Results (from the past 360 hour(s)) XR Forearm Right 2 Vw Narrative Procedure: XR FOREARM RIGHT 2 VW Indication: ANIMAL BITE Date of Service: 11/16/2015 3:08 pm Two views of the right forearm are provided. No prior studies available for comparison. I do not see any fractures, dislocations or bony lesions. Joint spaces appear normal. There is soft tissue injury involving the mid forearm. No radiopaque foreign body seen. No abnormal gas collections. IMPRESSION- Views of the right forearm show 1. Soft tissue injury to the forearm. No foreign bodies or abnormal gas collections. 2. Bone structures normal. This report electronically signed Jose Ramon Mayes MD 11/16/2015 Dictated: 11/16/2015 3:17:56 PM Lac Repair Date/Time: 11/16/2015 19:30 Performed by: JOSH LARIOS Authorized by: JOSH LARIOS Consent: Verbal consent obtained. Risks and benefits: risks, benefits and alternatives were discussed Consent given by: patient Body area: upper extremity Location details: right lower arm Laceration length: 5 cm Contamination: The wound is contaminated. (Dog bite) Foreign bodies: no foreign bodies Tendon involvement: none Nerve involvement: none Vascular damage: yes (Large vein lacerated the exposed) Anesthesia: local infiltration Local anesthetic: lidocaine 1% with epinephrine Anesthetic total: 15 ml Irrigation solution: saline Irrigation method: syringe Amount of cleaning: extensive Debridement: minimal (Large vein exposed and dried out this was ligated and the distal port ion removed) Degree of undermining: none Skin closure: 4-0 nylon Subcutaneous closure: 3-0 Vicryl Number of sutures: 6 Technique: simple Approximation: loose Approximation difficulty: complex (Layered closure) Dressing: antibiotic ointment and 4x4 sterile gauze Patient tolerance: Patient tolerated the procedure well with no immediate complications Comments: Due to the gaping wound was loosely closed does not close tightly due to the dog bite as cause ED Course and Medical Decision Making: The patient was brought to a room and evaluated. A history and physical were performed. Vitals with Comments 11/01/2011 08/10/2013 08/10/2013 11/16/2015 SYSTOLIC 126 137 140 145 DIASTOLIC 78 77 80 95 Pulse 72 93 90 97 Temp 98.7 97.2 - 97 Resp 20 18 16 18 Weight 191 lbs 3 oz 165 lbs - 198 lbs Height - 5' 9" - 5' 9" SPO2 - 96 98 97 BMI - 24.4 kg/m2 - 29.3 kg/m2 Pain Score 6 - - - Pain Score right shoulder - - - IMPRESSION: Dog bite with large laceration DISPOSITION: Discharge home with Augmentin and PC follow-up home in [place]. The patient endorsed clear understanding of the disposition and the plan at this time. The patient is agreeable with this plan. Patient is encouraged to return to the emergency depa rtment if worsening symptoms or other concerns. Followup with their primary care provider w ith the next available appointment. Time was offered for the patient to ask questions, and all questions were answered to the best of my ability. Portions of this chart may have been created with voice recognition software. Occasional wr main-word or "sound-alike" substitutions may have occurred due to the inherent limitations of voice recognition software. Read the chart carefully and recognize, using context, where th kuldeep substitutions have occurred. Josh Larios DO 11/16/15 1933 Nicolasa Castro RN - 11/16/2015 4:01 PM MDTSuture repair per MD, antibiotic ointment , telfa and dressing applied. 3 :01 PM PDTdocumented in this encounter Miscellaneous Notes ED Triage Notes - Rea Oquendo RN - 11/16/2015 2:35 PM TPatient was bit by her dog i n the left forearm, was seen and evaluated in the [facility] emergency department and sent to her e for care. She believes her last tetanus was last year documented in this encounter Plan of Treatment Not on filedocumented as of this encounter Procedures + +--------+ + + + | Procedure Name | Priori | Date/Time | Associated Diagnosis | Comments | | | ty | | | | + +--------+ + + + | LACERATION REPAIR | Routin | 11/16/2015 | | Results for this | | | e | 7:33 PM | | procedure are in the | | | | MDT | | results section. | + +--------+ + + + | XR FOREARM RIGHT 2 | STAT | 11/16/2015 | | Results for this | | VW | | 3:07 PM | | procedure are in the | | | | MDT | | results section. | + +--------+ + + + documented in this encounter Results LACERATION REPAIR (11/16/2015 7:33 PM MDT) + + + | Narrative | Performed At | + + + | Josh Larios DO 11/16/2015 19:33 | | | [facility]: Emergency Department Note | | | PATIENT: Wilda Nicole ([id number]) : 1965 DATE OF | | | SERVICE: 11/16/15 AUTHOR: Josh Larios, DO | | | 11/16/2015 PCP: No Physician on file The patient arrived by: | | | Private vehicle History is obtained by: Patient Chief complaint: | | | Dog bite History of present illness: Patient complaining of a dog | | | bite happened at her mother's home it was a known dog vaccinations. | | | Patient was visiting her mother with her dog and mother starts | | | present around the started fighting she tried to separate them was | | | bitten in the right forearm. Patient was seen at [facility] | | clinic but sent to the ER due to lack of materials to close the | | | wound. Patient is not up-to-date with her tetanus. Patient has | | | no other complaints at this time denies loss of sensation or use of | | | the hand. Panel control was called and dog was put down. ROS: 10 | | | point review of systems is negative aside from that listed in | | | history of present illness. PMH: has a past medical history of | | | Hypertension and Hyperlipidemia. PSH: has past surgical | | | history that includes Carpal tunnel release; cyst removal; and | | | orthopeic surgery. Family History: family history includes | | | Cancer in her father and mother; High blood pressure in her mother; | | | High cholesterol in her mother. Social History: reports that | | | she has been smoking. She has never used smokeless tobacco. She | | | reports that she does not drink alcohol or use illicit drugs. | | | Current Medications: Current Outpatient Rx Name Route Sig | | | Dispense Refill | | | amoxicillin-clavulanate (AUGMENTIN) 875-125 mg per tablet Oral | | | Take 1 tablet by mouth 2 times daily for 7 days. 14 tablet | | | 0 | | | diltiazem (MATZIM LA) 360 MG 24 hr tablet Oral Take 360 mg | | | by mouth Daily. | | | rosuvastatin (CRESTOR) 40 MG tablet Oral Take 40 mg by mouth | | | Daily. Allergies: No Known Allergies | | | PHYSICAL EXAM: VITAL SIGNS: Temp: 36.1 C (97 F) Pulse: 97 Resp: | | | 18 SpO2: 97 % BP: (!) 145/95 mmHg GENERAL: Alert and oriented | | | 4 minimal distress well groomed well-nourished well-hydrated HEAD: | | | Normocephalic and atraumatic. EYES: Pupils equal, round and reactive | | | to light and accommodation. Extraocular movements are intact. | | | NECK: Supple, no lymphadenopathy, full range of motion without pain. | | | No nuchal rigidity CHEST: Nontender to palpation. No crepitus. | | | No external signs of trauma. LUNGS: Clear to auscultation | | | bilaterally. No accessory muscle use. Answering questions with | | | full sentences. CARDIAC: Regular rate and rhythm without murmur, rub | | | or gallop, pulses intact x4 ABDOMEN: Soft, nontender, nondistended, | | | no organomegaly, no pulsatile mass, bowel tones are present. | | | MUSCULOSKELETAL: Large 5 cm gaping lack right forearm full-thickness | | | skin with subcu tissue involved exposed muscle sheath no sheath | | | involvement, but has exposed lacerated vein with hemostasis NEURO: | | | Cranial nerves II through XII are grossly intact. Normal | | | sensation throughout dermatomes of the body, moving all extremities. | | | SKIN: Clear without rash, no purpura or petechia. | | | RADIOLOGY: Recent Results (from the past 360 hour(s)) XR Forearm | | | Right 2 Vw Narrative Procedure: XR FOREARM RIGHT 2 VW | | | Indication: ANIMAL BITE Date of Service: 11/16/2015 3:08 pm Two | | | views of the right forearm are provided. No prior studies available | | | for comparison. I do not see any fractures, dislocations or bony | | | lesions. Joint spaces appear normal. There is soft tissue injury | | | involving the mid forearm. No radiopaque foreign body seen. No | | | abnormal gas collections. IMPRESSION- Views of the right forearm | | | show 1. Soft tissue injury to the forearm. No foreign bodies or | | | abnormal gas collections. 2. Bone structures normal. | | | This report electronically | | | signed Jose Ramon Mayes | | | 11/16/2015 | | | Dictated: 11/16/2015 3:17:56 PM Lac Repair Date/Time: 11/16/2015 | | | 19:30 Performed by: JOSH LARIOS Authorized by: | | | JOSH LARIOS Consent: Verbal consent obtained. Risks | | | and benefits: risks, benefits and alternatives were discussed | | | Consent given by: patient Body area: upper extremity Location | | | details: right lower arm Laceration length: 5 cm Contamination: The | | | wound is contaminated. (Dog bite) Foreign bodies: no foreign bodies | | | Tendon involvement: none Nerve involvement: none Vascular damage: | | | yes (Large vein lacerated the exposed) Anesthesia: local infiltration | | | Local anesthetic: lidocaine 1% with epinephrine Anesthetic total: | | | 15 ml Irrigation solution: saline Irrigation method: syringe Amount | | | of cleaning: extensive Debridement: minimal (Large vein exposed and | | | dried out this was ligated and the distal portion removed) Degree | | | of undermining: none Skin closure: 4-0 nylon Subcutaneous closure: | | | 3-0 Vicryl Number of sutures: 6 Technique: simple Approximation: | | | loose Approximation difficulty: complex (Layered closure) Dressing: | | | antibiotic ointment and 4x4 sterile gauze Patient tolerance: Patient | | | tolerated the procedure well with no immediate complications | | | Comments: Due to the gaping wound was loosely closed does not close | | | tightly due to the dog bite as cause ED Course and | | | Medical Decision Making: The patient was brought to a room and | | | evaluated. A history and physical were performed. Vitals | | | with Comments 11/01/2011 08/10/2013 08/10/2013 11/16/2015 SYSTOLIC 126 | | | 137 140 145 DIASTOLIC 78 77 80 95 Pulse 72 93 90 97 Temp 98.7 | | | 97.2 - 97 Resp 20 18 16 18 Weight 191 lbs 3 oz 165 lbs - 198 lbs | | | Height - 5' 9" - 5' 9" SPO2 - 96 98 97 BMI - 24.4 kg/m2 - 29.3 | | | kg/m2 Pain Score 6 - - - Pain Score right shoulder - - - | | | IMPRESSION: Dog bite with large laceration DISPOSITION: | | | Discharge home with Augmentin and PC follow-up home in [place]. | | | The patient endorsed clear understanding of the disposition and the | | | plan at this time. The patient is agreeable with this plan. | | | Patient is encouraged to return to the emergency department if | | | worsening symptoms or other concerns. Followup with their primary | | | care provider with the next available appointment. Time was | | | offered for the patient to ask questions, and all questions were | | | answered to the best of my ability. Portions of this chart may | | | have been created with voice recognition software. Occasional | | | wrong-word or "sound-alike" substitutions may have occurred due to | | | the inherent limitations of voice recognition software. Read the | | | chart carefully and recognize, using context, where these | | | substitutions have occurred. | | + + + XR Forearm Right 2 Vw (11/16/2015 3:07 PM MDT) + + | Specimen | + + | | + + + + + | Narrative | Performed At | + + + | Procedure: XR FOREARM RIGHT 2 VW Indication: ANIMAL BITE | [facility] | | Date of Service: 11/16/2015 3:08 pm Two views of the right forearm | | | are provided. No prior studies available for comparison. I do not see | | | any fractures, dislocations or bony lesions. Joint spaces appear | | | normal. There is soft tissue injury involving the mid forearm. No | | | radiopaque foreign body seen. No abnormal gas collections. | | | IMPRESSION- Views of the right forearm show 1. Soft tissue injury | | | to the forearm. No foreign bodies or abnormal gas collections. 2. | | | Bone structures normal. | | | This report electronically signed | | | Jose Ramon Mayes MD | | | 11/16/2015 Dictated: 11/16/2015 3:17:56 PM | | + + + + + | Procedure Note | + + | Deon, Rad Results In - 11/16/2015 4:21 PM MARYLU | | Procedure: XR FOREARM RIGHT 2 VW | | | | Indication: ANIMAL BITE | | | | Date of Service: 11/16/2015 3:08 pm | | | | Two views of the right forearm are provided. No prior studies available for | | comparison. I do not see any fractures, dislocations or bony lesions. Joint | | spaces appear normal. There is soft tissue injury involving the mid forearm. No | | radiopaque foreign body seen. No abnormal gas collections. | | | | IMPRESSION- Views of the right forearm show | | | | 1. Soft tissue injury to the forearm. No foreign bodies or abnormal gas | | collections. | | 2. Bone structures normal. | | | | | | | | This report electronically signed | | Jose Ramon Mayes MD | | 11/16/2015 | | | | Dictated: 11/16/2015 3:17:56 PM | + + + +---------+ + + | Performing | Address | City/State/Zipcode | Phone Number | | Organization | | | | + +---------+ + + | [facility] | | | | + +---------+ + + documented in this encounter Visit Diagnoses + + | Diagnosis | + + | Dog bite of arm, right, initial encounter - Primary | + + documented in this encounter Administered Medications + +--------+ +---------+------+ + | Medication Order | MAR | Action | Dose | Rate | Site | | | Action | Date | | | | + +--------+ +---------+------+ + | [id number] | Given | 11/16/19 | 0.5 mLs | | Deltoid- | | pertussis (BOOSTRIX, Tdap) | | 16 3:22 | | | Right | | vaccine injection 0.5 mL 0.5 mL, | | PM MDT | | | | | Intramuscular, ONE TIME VACCINE, | | | | | | | 11/16/15 at 1505, For 1 dose, | | | | | | | Keep in refrigerator. Provide | | | | | | | patient education information., | | | | | | + +--------+ +---------+------+ + +---+---+ | | | +---+---+ documented in this encounter
--- OUTSIDE RECORDS SUMMARY | ~2019-08-29 | XMS | Encounter Summary ---
Demographics + + + | Address | [address] [place] [address] | | | [place] [address] | + + + | Home Phone | | + + + | Preferred Language | Unknown | + + + | Marital Status | | + + + | Confucianist Affiliation | Unknown | + + + | Race | Unknown | + + + | Ethnic Group | Unknown | + + + Author + + + | Author | [facility] | | | and [place] | + + + | Organization | [facility] | | | and [place] | + + + | Address | Unknown | + + + | Phone | Unavailable | + + + Support + + + + + | Name | Relationship | Address | Phone | + + + + + | Myrna Prado | ROBBIE | [address] | | | | | [place] | | | | | [address] | | + + + + + Care Team Providers + +------+ + | Care Verifying Machine Operator Name | Role | Phone | + +------+ + | Juan Ramon Gray | PCP | | + +------+ + Reason for Referral Diagnostic/Screening (Routine) +--------+--------+ + + + + | Status | Reason | Specialty | Diagnoses / | Referred By | Referred To | | | | | Procedures | Contact | Contact | +--------+--------+ + + + + | Closed | | Radiology | Diagnoses | Isaac | | | | | | Shoulder | ROSIE [place]atorre | | | | | | pain, right | [address] | | | | | | Procedures | Road | | | | | | MRI | [place] | | | | | | shoulder | [address] | | | | | | right | Phone: | | | | | | without | [phone] | | | | | | contrast | Fax: | | | | | | | [phone] | | +--------+--------+ + + + + Reason for Visit +--------+--------+ + | Reason | Onset | Comments | | | Date | | +--------+--------+ + | Other | 10/16/ | WANTS YOU TO SET UP AN MRI | | | 2011 | | +--------+--------+ + Encounter Details +--------+ + + + + | Date | Type | Department | Care Team | Description | +--------+ + + + + | 10/16/ | Telephone | [facility] | Juan Ramon Gray, | Other (WANTS YOU TO | | 2011 | | Group - Latrell De [place] | [place] [address] | SET UP AN MRI) | | | | Family Medicine | [place] [address] | | | | | [address] | [phone] | | | | | [place], [place] | | | | | | [address] | | | | | | [phone] | | | +--------+ + + + [...] Telephone Encounter - Katrina Francisco LPN - 10/17/2011 1:41 PM MDTLM w/ MRI place an d time for pt on her cell phone, per her request. elephone Encounter - Katrina Francisco LPN - 10/17/19 12 9:43 AM MDTCalled pt and she states the injection into her shoulder from a couple weeks ago did not help and she would like you to order a MRI. documented in this encounter Plan of Treatment + +---------+--------+ + + | Name | Type | Priori | Associated Diagnoses | Order Schedule | | | | ty | | | + +---------+--------+ + + | MRI shoulder right | Imaging | Routin | Shoulder pain, | Expected: | | without contrast | | e | right | 10/17/2011, Expires: | | | | | | 10/16/2012 | + +---------+--------+ + + documented as of this encounter Visit Diagnoses + + | Diagnosis | + + | Shoulder pain, right - Primary Pain in joint, shoulder region | + + documented in this encounter"
--- OUTSIDE RECORDS SUMMARY | ~2019-08-29 | XMS | Encounter Summary ---
Demographics + + + | Address | [address] [place] [address] | | | [place] [address] | + + + | Home Phone | | + + + | Preferred Language | Unknown | + + + | Marital Status | | + + + | Adventism Affiliation | Unknown | + + + | Race | Unknown | + + + | Ethnic Group | Unknown | + + + Author + + + | Author | [facility] | | | and [place] | + + + | Organization | [facility] | [address] | | | | | [place], [place] | | | | | [address] | | + + + + + Care Team Providers + +------+ + | Care Inspector Aide Name | Role | Phone | + +------+ + PCP | Unavailable | + +------+ + Encounter Details +--------+ + + + + | Date | Type | Department | Care Team | Description | +--------+ + + + + | 01/17/ | Hospital | [facility] | Juan Ramon Gray, | | | 2010 | Encounter | COUNT INCLUDES [facility] | [place] [address] | | | | | GENERIC OP CONV DEPT | [place] [address] | | | | | [address] [facility] | [phone] | | | | | [place] | | | | | | [address] | | | | | | [phone] | | | +--------+ + + + [...]
--- NOTE | 2019-08-30 15:38 | EKG ---
[facility] [address] [facility] [place], [place] [address] Signed Normal sinus rhythm Normal ECG No previous ECGs available Confirmed by HERNI CHONG MD ([id number]) on 08/30/2019 3:38:23 PM Electronically Signed By: HENRI CHONG MD 08/30/19 1538 PATIENT NAME: NOLAN PETERSON Electrocardiogram DATE OF : 69 PHYSICIAN: HENRI CHONG MD REPORT #: [id number] REPORT IS CONFIDENTIAL AND NOT TO BE RELEASED WITHOUT AUTHORIZATION
== END 2019-08-29 17:52 | disposition left against medical advice (07) ==
LOC: ED 15:51
DX: R07.9 Chest pain, unspecified (principal); R00.2 Palpitations; F17.200 Nicotine dependence, unspecified, uncomplicated
CPT/HCPCS: 80048; 83735; 84443; 84484; 85025; 93005; 93010; 99285-25

== ENCOUNTER 2019-12-11 06:20 | Day surgery (SDC) | payer OTHER ==
[~2019-12-11] VITALS: Ht 175.3 cm; Wt 94.3 kg
[~2019-12-11 06:20] MED LIST changes: +ADULT LOW DOSE81 MG PO; +LIPITOR40 MG PO; +TOPROL XL50 MG PO
--- NOTE | 2019-12-11 06:20 | NUR ---
PT ARRIVED TO THE UNIT WALKING INDEPENDENTLY WITH NO VISITOR AND PLACED IN RM 3.
--- NOTE | 2019-12-11 08:12 | NUR ---
PT ALERT, ORIENTED AND HAD JUST VISITED WITH DR BRYAN. PT WAS ANXIOUS, WAS ABLE TO CONNECT WITH HER, OR STAFF WAITING OUTSIDE . PT REQUESTED PRAYER WILL FOLLOW
--- NOTE | 2019-12-11 08:47 | NUR ---
12/11/19 0847 Yury García RESPONDS TO VOICE ON ENTRY TO PACU. DENIES NAUSEA OR PAIN. FALLS ASLEEP EASILY.
--- NOTE | 2019-12-11 09:26 | NUR ---
PT ARRIVED FROM PACU. REPORT RECIEVED FROM LINH Reid RN. PT PROVIDED WITH WATER AND COFFEE. PT RESTING IN LOCKED AND LOWERED BED, SIDE RAILS UP. CALL LIGHT WITHIN REACH. NO FURTHER REQUESTS AT THIS TIME
--- NOTE | 2019-12-11 10:05 | NUR ---
PT UP TO USE THE RESTROOM INDEPENDENTLY. VOIDED WITHOUT COMPLICATIONS. ICE WATER, COFFEE, AND CRACKERS PROVIDED. PT RESTING IN LOCKED AND LOWERED BED, SIDE RAILS UP, CALL LIGHT WITHIN REACH. NO FURTHER REQUESTS AT THIS TIME.
[2019-12-11] MEDS ORDERED: NORCO 5-325 TA1 EACH PO (10:33)
--- NOTE | 2019-12-11 10:47 | OR ---
[facility] [address] [place], [place] [address] Signed DATE OF OPERATION: 12/11/2019 SURGEON: Parmjit Bryan MD PREOPERATIVE DIAGNOSES: Cholelithiasis with cholecystitis. POSTOPERATIVE DIAGNOSES: Cholelithiasis with cholecystitis. PROCEDURE: Laparoscopic cholecystectomy with intraoperative cholangiogram. ESTIMATED BLOOD LOSS: None. FINDINGS: The intraoperative cholangiogram was unremarkable. Nolan had multiple stones within the gallbladder. Most of them were small 2-3 mm in diameter and several were around 4-5 mm in diameter. One of the larger stones was in the neck of the gallbladder next to the cystic duct. INDICATIONS: Nolan is a 54-year-old female asked to see me for her symptomatic cholelithiasis. She has been having epigastric abdominal pain and upper abdomen. It has been bothering her for about two years. In the last five months, it has been getting progressively worse. She had actually been to her cost control supervisor recently and came to a negative cardiac evaluation. She then had a bump in her liver function tests and so, an ultrasound had been ordered. This demonstrated multiple small 3 mm gallstones in the gallbladder. The common bile duct was unremarkable. She was asked to see me with respect to the above. I met with Nolan in the office. I gave her a brochure on the gallbladder. We went through page by page. She understands the location and function of the gallbladder. We discussed laparoscopic versus open cholecystectomy. She understands expected intraop and postop course. There is risk to surgery including, but not limited to bleeding, infection, scarring, change in contour of the skin, damage to bowel, damage to main bile duct, incisional hernias and other unforeseen comorbidities. She had expressed understanding and wished to proceed. DESCRIPTION OF PROCEDURE: I met with Nolan in our preop area. After answering her questions, she was taken in Electronically Signed By: PARMJIT BRYAN MD 12/11/19 1047 PATIENT NAME: NOLAN PETERSON OPERATIVE REPORT DATE OF : 69 REPORT #: [id number] PHYSICIAN: PARMJIT BRYAN MD PCP: IAM PHELPS MD REPORT IS CONFIDENTIAL AND NOT TO BE RELEASED WITHOUT AUTHORIZATION [facility] [address] [place] [address] Signed the operating room and placed in the supine position under general endotracheal tube anesthesia. She was given preoperative antibiotics along with subcutaneous heparin. SCDs were utilized. She was then prepped and draped in the usual sterile fashion. All trocars were then placed in her usual positions under direct visualization of camera without difficulty. Pictures were taken throughout for photodocumentation. The findings were as above. The gallbladder had been grasped and elevated in the right upper quadrant. The triangle of Calot was dissected free and a clip had been placed across the cystic artery and it was divided. The intraoperative cholangiocatheter was inserted into the cystic duct. The intraoperative cholangiogram was then performed and found to be unremarkable. The cystic duct stump was secured with a PDS Endoloop along with two clips to horacio its location. After this, the gallbladder was removed from the gallbladder fossa with the help of the cautery and placed into an EndoCatch bag. We used our laparoscopic suturing device to pass 0 Vicryl suture on either side of the fascia of the subxiphoid trocar site. This was tied down to close this fascia primarily. After this, all the gas was allowed to escape and all the trocars were removed along with the gallbladder. The gallbladder was opened on the back table by our circulating nurse for photodocumentation. The fascia of the supraumbilical trocar site was then closed with interrupted [id number] and simple 0-Vicryl sutures. Local anesthetic was injected into all trocar sites. The skin and dermis of each trocar site were closed with interrupted 3-0 subcuticular Monocryl sutures. Dry gauze and tape were applied to all incisions. Nolan was awakened from her anesthesia, extubated in the OR, and taken to the recovery room in stable condition. Parmjit Bryan MD ALB/MODL /[id number] cc: MD Parmjit Kaur MD Kesav Parvataneni, MD Copies: IAM PHELPS DMD Electronically Signed By: PARMJIT BRYAN MD 12/11/19 1047 PATIENT NAME: NOLAN PETERSON OPERATIVE REPORT DATE OF : 69 REPORT #: [id number] PHYSICIAN: PARMJIT BRYAN MD PCP: IAM PHELPS MD REPORT IS CONFIDENTIAL AND NOT TO BE RELEASED WITHOUT AUTHORIZATION [address] [address] Signed PARMJIT BRYAN MD ~ Electronically Signed By: PARMJIT BRYAN MD 12/11/19 1047 PATIENT NAME: NOLAN PETERSON OPERATIVE REPORT DATE OF : 69 REPORT #: [id number] PHYSICIAN: PARMJIT BRYAN MD PCP: IAM PHELPS MD REPORT IS CONFIDENTIAL AND NOT TO BE RELEASED WITHOUT AUTHORIZATION
--- NOTE | 2019-12-11 10:51 | NUR ---
DISCHARGE CRITERIA MET. DISCHARGE INSTRUCTIONS GIVEN. PT LEFT THE UNIT VIA WHEELCHAIR. TRANSFERRED INDEPENDENTLY FROM WHEELCHAIR TO VEHICLE WITH NO COMPLICATIONS. BOYFRIEND PROVIDED TRANSPORATION.
--- NOTE | 2019-12-13 15:55 | PATH ---
[facility] [address] [facility] [place] [address] Signed SPECIMEN(S): A GALLBLADDER AND STONES SPECIMEN SOURCE: A. GALLBLADDER AND STONES CLINICAL HISTORY: Calculus of gallbladder, chronic cholecystitis. FINAL PATHOLOGIC DIAGNOSIS: Gallbladder and stones: - Chronic calculus cholecystitis. JVR:cml:C2NR MICROSCOPIC EXAMINATION: Histologic sections of all submitted blocks are examined by light microscopy. These findings, together with the gross examination, support the pathologic diagnosis. GROSS DESCRIPTION: The specimen, labeled "KM, A," and designated on the requisition "gallbladder and stones," is received in formalin and consists of Specimen: Previously opened gallbladder. Dimensions: 7.2 x 2.7 x 1.7 cm. Serosa: Violaceous and smooth with attached adipose tissue. Cystic Duct: Unobstructed, containing small calculi. Calculi: Multiple yellow round to-faceted calculi measuring 3.0 x 2.0 x 0.5 cm in aggregate. Mucosa: Green-brown and velvety. Wall thickness: Up to 0.7 cm. Lymph node: No pericystic lymph nodes are grossly identified. Additional: None. Associate Sales sections are submitted in cassette (A1). AT (under the direct supervision of a pathologist) The Gross Description was prepared using a voice recognition system. The report was reviewed for accuracy; however, sound-alike word errors, addition and/or deletions may occur. If there is any question about this report, please contact Client Services. PERFORMING LABORATORY: The technical component was performed by [facility], [address] [place] [id number] (Oncology Registrar: Nicolasa Bartlett MD; CLIA# [id number]). PATIENT NAME: NOLAN PETERSON PATHOLOGY DATE OF : 69 REPORT #: [id number] PHYSICIAN: KORIN PATHOLOGY PCP: IAM PHELPS MD REPORT IS CONFIDENTIAL AND NOT TO BE RELEASED WITHOUT AUTHORIZATION [facility] [address] [place], [place] [address] Signed Professional interpretation [place] [address] (Oncology Registrar: Lauri Caballero M.D.). Diagnostician: Lauir Caballero MD Pathologist Electronically Signed 12/13/2019 Copies: ~ PATIENT NAME: NOLAN PETERSON PATHOLOGY DATE OF : 69 REPORT #: [id number] PHYSICIAN: KORIN PATHOLOGY PCP: IAM PHELPS MD REPORT IS CONFIDENTIAL AND NOT TO BE RELEASED WITHOUT AUTHORIZATION
== END 2019-12-11 10:45 | disposition home or self-care (01) ==
LOC: DS 06:20
PROVIDERS: ATTEND Colon & Rectal Surgery
PROC: BF13YZZ Fluoroscopy of Gallbladder and Bile Ducts using Other Contrast (ICD-10-PCS; 2019-12-11)
PROC: 0FT44ZZ Resection of Gallbladder, Percutaneous Endoscopic Approach (ICD-10-PCS; principal; 2019-12-11 07:00)
DX: K80.10 Calculus of gallbladder with chronic cholecystitis without obstruction (principal); I10 Essential (primary) hypertension; E78.00 Pure hypercholesterolemia, unspecified; F17.210 Nicotine dependence, cigarettes, uncomplicated; E66.9 Obesity, unspecified; Z68.30 Body mass index [BMI] 30.0-30.9, adult; Z79.899 Other long term (current) drug therapy; Z79.82 Long term (current) use of aspirin
CPT/HCPCS: 00790; 74300; J0131; J0330; J0690; J1100; J1170; J1644; J1885; J2405; J2704; J3010; J3475; J7121; Q9967

== ENCOUNTER 2021-04-23 06:17 | Day surgery (SDC) | payer OTHER ==
[~2021-04-23] VITALS: Ht 175.3 cm; Wt 100.0 kg
[~2021-04-23 06:17] MED LIST changes: +LOW DOSE ASPIRI81 MG PO
--- NOTE | 2021-04-23 09:22 | NUR ---
04/23/21 0922 Wandy Varela 0917 PATIENT ARRIVES TO PACU AWAKE OFF/ON, BUT DROWSY. RESP EVEN AND UNLABORED, MASK AT 10 LITERS, DECREASED TO 6 LITERS. DENIES PAIN. RESTING QUIETLY. 919 PATIENT CONTINUES TO DENY PAIN. RESP EVEN AND UNLABORED, OXYGEN OFF.
--- NOTE | 2021-04-23 10:53 | OR ---
[facility] [address] [place], [place] [address] Signed DATE OF OPERATION: 04/23/2021 SURGEON: Parmjit Bryan MD PREOPERATIVE DIAGNOSIS: Left breast cancer (8 o'clock). POSTOPERATIVE DIAGNOSIS: Left breast cancer (8 o'clock). PROCEDURES: 1. Left breast lumpectomy and sentinel lymph node biopsy. 2. Injection of methylene blue. ESTIMATED BLOOD LOSS: None. INDICATIONS: Nolan is a 55-year-old female, who was asked to see me for a 2 cm cancer in the 8 o'clock position of her left breast. She found this while bathing on . She has never had a previous mammogram or ultrasound until this palpable lesion. She underwent a core needle biopsy and of course it came back as breast cancer. The ER and CT receptors are negative. HER-2/shun is also negative. I gave Nolan a booklet on breast and breast cancers and procedures. We discussed the idea of a lumpectomy with a sentinel lymph node biopsy. She understands there will be two separate incisions. She understands she will be going to the radiology department for surgery to have the sulfur technetium colloid injected to help us locate the sentinel lymph nodes. She understands we will be using methylene blue after she is asleep in the OR to help identify the sentinel lymph nodes as well. There is risk to the surgery including, but not limited to bleeding, infection, scarring, change in contour of the skin as well as possible need for additional procedures and/or treatments including chemotherapy and radiation. She had expressed understanding and wished to proceed. DESCRIPTION OF PROCEDURE: I met with Nolan and her boyfriend in our preop area. We all agreed on the palpable lesion at the 8 o'clock position of her left breast. With our nurse and her boyfriend in the room, we marked that appropriately. After this, Nolan was taken in the operating room and placed in the supine position under general endotracheal tube anesthesia. She was given preoperative antibiotics along with subcutaneous heparin. SCDs were utilized. She was then prepped and draped in the usual sterile fashion. We Electronically Signed By: PARMJIT BRYAN MD 04/23/21 1053 PATIENT NAME: NOLAN PETERSON OPERATIVE REPORT DATE OF : 69 REPORT #: [id number] PHYSICIAN: PARMJIT BRYAN MD PCP: IAM PHELPS MD REPORT IS CONFIDENTIAL AND NOT TO BE RELEASED WITHOUT AUTHORIZATION [facility] [address] [place], [place] [address] Signed utilized a standard transverse axillary incision along the inferior edge of her axillary hair. We carried this down through the subcutaneous fat and into the axilla itself. With the help of the Knobel counter, we located two obvious sentinel lymph nodes. There may be a 3rd sentinel lymph node next to the 1st sentinel lymph node in the same jar. Our Monie counts dropped by over 10 and there was no other lymph nodes to be removed. The wound was irrigated and suctioned out until clear. We closed the wound in layers with interrupted 3-0 Monocryl suture. The dermis was reapproximated with interrupted 3-0 subcuticular Monocryl sutures. The skin edges were reapproximated with a running 5-0 fast absorbing plain gut suture. After this, we turned our attention to her breast cancer at the 8 o'clock position. We made an oblique curvilinear incision headed towards the inferior edge of the areola. We carried this down around the lesion bluntly and with the cautery until the entire cancer was thus removed all the way down to the chest wall. The specimen was then appropriately marked. We injected local anesthetic into the chest wall and the subcutaneous tissues of the wound. The wound was irrigated and suctioned out until clear. We closed the wound in layers with interrupted 3-0 Monocryl sutures. The dermis was reapproximated with interrupted 3-0 subcuticular Monocryl sutures. The skin edges were reapproximated with a running 5-0 fast absorbing plain gut suture. Dry gauze and tape were then applied to both incisions. After this, Nolan was awakened from her anesthesia, extubated in the OR, and taken to the recovery room in stable condition. Parmjit Bryan MD ALB/MODL /[id number] cc: MD Iam Patel MD Copies: PARMJIT BRYAN MD, ROBERT D DMD ~ Electronically Signed By: PARMJIT BRYAN MD 04/23/21 1053 PATIENT NAME: NOLAN PETERSON OPERATIVE REPORT DATE OF : 69 REPORT #: [id number] PHYSICIAN: PARMJIT BRYAN MD PCP: IAM PHELPS MD REPORT IS CONFIDENTIAL AND NOT TO BE RELEASED WITHOUT AUTHORIZATION
--- NOTE | 2021-04-26 16:40 | PATH ---
[facility] [address] [place], [place] [address] Signed SPECIMEN(S): A SENTINEL LYMPH NODE LEFT BREAST 1 SPECIMEN(S): B SENTINEL LYMPH NODE LEFT BREAST 2 SPECIMEN(S): C LEFT BREAST LUMP, INFERIOR MEDIAL SPECIMEN SOURCE: A. SENTINEL LYMPH NODE LEFT BREAST 1 B. SENTINEL LYMPH NODE LEFT BREAST 2 C. LEFT BREAST LUMP, INFERIOR MEDIAL CLINICAL HISTORY: Left breast cancer. Left breast lumpectomy/SLNB. See HP. Specimen Time to Fixation- 04/23/2021 8:15:00 AM FINAL PATHOLOGIC DIAGNOSIS: A. [place] lymph node #1, left axilla, excisional biopsy: - No evidence of malignancy in one lymph node (0/1). B. [place] lymph node #2, left axilla, excisional biopsy: - No evidence of malignancy in one lymph node (0/1). C. 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 - Histologic grade (Denville histologic score): - Glandular (acinar)/tubular differentiation: Score 3. - Nuclear pleomorphism: Score 3. - Mitotic rate: Score 3. - Overall grade: III / III (total score 9 of 9). - Tumor size: 30 x 28 x 27 mm. - Tumor focality: Single focus of invasive carcinoma. - Ductal carcinoma (DCIS): Focally present, negative for extensive intraductal component (EIC). - Architectural patterns: Solid. - Nuclear grade: Grade 3 (high). - Necrosis: Not identified. - Lobular carcinoma in situ (LCIS): Not identified. - Lymphovascular invasion: Not identified. - Microcalcifications: Not identified. - Treatment effect in the breast: No known presurgical therapy. - Margins: - Margin status for invasive carcinoma: All margins negative for invasive carcinoma. PATIENT NAME: NOLAN PETERSON PATHOLOGY DATE OF : 69 REPORT #: [id number] PHYSICIAN: [facility] PATH[facility] PCP: IAM PHELPS MD REPORT IS CONFIDENTIAL AND NOT TO BE RELEASED WITHOUT AUTHORIZATION [facility] [address] [place], [place] [address] Signed - Distance from invasive carcinoma to closest margin: - Less than 1 mm from the inferior margin. - 3 mm from anterior margin. - 5 mm from superior margin. - All other margins greater than 5 mm. - Margin status for DCIS: All margins negative for DCIS. - Distance from DCIS to closest margin: Greater than 5 mm from all margins. - Regional lymph nodes: All regional lymph nodes negative for tumor. - Total number of lymph nodes examined: 2. - Number of sentinel nodes examined: 2. - Breast biomarker studies: Please refer to previously performed testing (), interpreted as ER negative, WI negative, and HER2 negative by IHC. - Pathologic stage classification (pTNM, AJCC 8th ed): pT2 (sn) pN0. COMMENT: As part of [facility]' Quality Improvement Program, this case was reviewed by another member of our pathology staff. NAL:ALANIS:cml:C1NR MICROSCOPIC EXAMINATION: Histologic sections of all submitted blocks are examined by light microscopy. These findings, together with the gross examination, support the pathologic diagnosis. The sentinel lymph nodes were examined using multiple serial sections as well as pancytokeratin immunohistochemical stains (with appropriately staining controls) on a office services representative section of each sentinel lymph node (A1, B1). GROSS DESCRIPTION: Three specimens are received in three containers, labeled "KM." A. The specimen, labeled "HEIDI, A," and designated on the requisition "sentinel lymph node #1," is received in formalin and consists of one pink-mayorga to blue-tinted possible lymph node (2.8 x 1.7 x 1.2 cm). The specimen is serially sectioned to reveal a pink-mayorga to blue-tinted cut surface. The specimen is submitted entirely in cassettes (A1-A3). B. The specimen, labeled "HEIDI, B," and designated on the requisition "sentinel lymph node #2," is received in formalin and consists of one blue-tinted possible lymph node (2.0 x 1.7 x 1.2 cm). The PATIENT NAME: NOLAN PETERSON PATHOLOGY DATE OF : 69 REPORT #: [id number] PHYSICIAN: KORIN PATHOLOGY PCP: IAM PHELPS MD REPORT IS CONFIDENTIAL AND NOT TO BE RELEASED WITHOUT AUTHORIZATION [address] [address] Signed specimen is serially sectioned to reveal a pink-mayorga to blue-tinted cut surface. Submitted in cassette (B1). C. The specimen, labeled "HEIDI, C," and designated on the requisition "left breast lump, inferior medial (short stitch skin, long stitch lateral, double stitch deep/chest wall)," is received in formalin and consists of an oriented portion of fibroadipose tissue (50 gram, 6.5 cm medial to lateral, 6.2 cm anterior to posterior, 3.2 cm superior to inferior). The specimen is inked as follows: Blue = superior Green = inferior Black = posterior Yellow = anterior Red = medial Byron = lateral The specimen is serially sectioned from medial to lateral into twelve slices to reveal a pink-mayorga to hemorrhagic, ill-defined, firm mass (3.0 x 2.8 x 2.7 cm) in slices 4-10. The mass is located 0.1 cm from the inferior margin, 0.3 cm from the superior margin, 0.6 cm from the anterior margin, 1.5 cm from the posterior margin, 1.5 cm and the medial margin, and 1.6 cm from the lateral margin. The remaining cut surface shows yellow-mayorga, fatty tissue. Gross photographs are taken and uploaded into [employer]. Senior Sustainability Advisor sections are submitted as follows: Cassette Summary: (C1) Slice 1, medial margin, perpendicular sections (C2) Slice 3, tissue medial to mass (C3) Slice 4, mass to posterior margin (C4) Slice 6, mass to anterior (C5) Slice 6, mass to inferior (C6) Slice 7, mass to inferior margin (C7) Mass to superior margin (C8) Additional mass to inferior (slices 8 and 9) (C9) Slice 11, tissue lateral to mass (C10) Slice 12, lateral margin, perpendicular sections Cold ischemic time: 2 minutes. The specimen was fixed in formalin for 51 hours. AC (under the direct supervision of a pathologist) The Gross Description was prepared using a voice recognition system. The report was reviewed for accuracy; however, sound-alike word errors, addition and/or PATIENT NAME: NICHOLAS,NOLAN RAYMOND PATHOLOGY DATE OF : 69 REPORT #: [id number] PHYSICIAN: KORIN TOBAR PCP: IAM PHELPS MD REPORT IS CONFIDENTIAL AND NOT TO BE RELEASED WITHOUT AUTHORIZATION [facility] [address] [place], [place] [address] Signed deletions may occur. If there is any question about this report, please contact Client Services. ADDITIONAL NOTES: Immunohistochemical and/or in situ hybridization studies were performed on this case with the appropriate positive controls that react as expected. This test was developed and its performance characteristics determined by [facility]. It has not been cleared or approved by the U.S. Food and Drug Administration. The FDA has determined that such clearance or approval is not necessary. This test is used for clinical purposes. It should not be regarded as investigational or for research. [facility] is certified under the Clinical Laboratory Improvement Amendments of 1988 (CLIA) as qualified to perform high complexity clinical laboratory testing. This assay has not been validated for specimens that have been decalcified. The technical component was performed by [facility], [address] [place] [id number] (Yard Motor Operator: Nicolasa Bartlett MD; CLIA# [id number]). Professional interpretation [facility], [address] [facility] [address] [address] (CLIA# [id number]). PERFORMING LABORATORY: The technical component was performed by [facility], [address] [place] [address] (Yard Motor Operator: Nicolasa Bartlett MD; CLIA# [id number]). Professional interpretation was performed by [facility], [address] [facility] [address] (IA# [id number]). Diagnostician: Alisia Holcomb MD Pathologist Electronically Signed 04/26/2021 Copies: ~ PATIENT NAME: NOLAN PETERSON PATHOLOGY DATE OF : 69 REPORT #: [id number] PHYSICIAN: KORIN PATHOLOGY PCP: IAM PHELPS MD REPORT IS CONFIDENTIAL AND NOT TO BE RELEASED WITHOUT AUTHORIZATION
== END 2021-04-23 10:55 | disposition home or self-care (01) ==
LOC: DS 06:17 → NUC 07:30 → DS 08:05
PROVIDERS: ATTEND Colon & Rectal Surgery
PROC: 0HBU0ZZ Excision of Left Breast, Open Approach (ICD-10-PCS; principal; 2021-04-23 06:45)
PROC: 07B60ZZ Excision of Left Axillary Lymphatic, Open Approach (ICD-10-PCS; 2021-04-23 06:45)
DX: C50.312 Malignant neoplasm of lower-inner quadrant of left female breast (principal); Z17.1 Estrogen receptor negative status [ER-]; I10 Essential (primary) hypertension; F17.210 Nicotine dependence, cigarettes, uncomplicated
CPT/HCPCS: J0690; J1100; J1644; J1885; J2001; J2250; J2405; J2704; J3010; J7121

== ENCOUNTER 2022-03-18 09:25 | Day surgery (SDC) | payer OTHER ==
[~2022-03-18] VITALS: Ht 172.7 cm; Wt 98.6 kg
[~2022-03-18 09:25] MED LIST changes: +CYCLOPHOSPHAMI500 MG IV; +DECADRON4 MG PO; +DEXAMETHASONE4 MG PO; +DOXORUBICIN HCL IV; +ONDANSETRON HCL8 MG SL; +ONDANSETRON ODT8 MG SL
--- NOTE | 2022-03-18 12:39 | NUR ---
03/18/22 1239 Velma,Anu 1210 PT ARRIVED TO PACU WITH ORAL AIRWAY IN PLACE, RESP EVEN AND UNLABORED. 1212 PT WOKE AND OPENED HER EYES, ORAL AIRWAY REMOVED. PT REACHING FOR HER FACE AND O2 MASK REMOVED. PT REORIENTED TO PACU. PT REPORTS 6/10 PAIN AND NO NAUSEA. 1224 PAIN MEDICATION GIVEN. PT SIPPING WATER AND DENIES CONCERNS. 1230 PT REPROTS PAIN IS 5/10 AND TOLERBALE. 1235 PT RETURNED TO AND PT REQUESTS HER PHONE, PHONE GIVEN. ALL QUESTIONS ANSWERED. VSS.
--- NOTE | 2022-03-18 12:43 | NUR ---
1235-PATIENT BACK TO ROOM FROM PACU ON . RECEIVED REPORT FROM MARY HAWK. PATIENT IS AWAKE. RESP EVEN AND UNLABORED. RATES PAIN 5/10 AND THIS IS TOLERABLE FOR HER AT THIS POINT. DRESSING CLEAN, DRY, AND INTACT. ICE PACK IN PLACE. PATIENT TAKING SIPS OF WATER AND COFFEE. CALL LIGHT WITHIN REACH.
--- NOTE | 2022-03-18 13:33 | NUR ---
PT AMBULATED TO BATHROOM WITHOUT ASSIST SHE WAS ABLE TO VOID A GOOD AMOUNT OF CLEAR YELLOW URINE. PT DENIES PAIN AND NAUSEA, REPORTS READINESS TO GO HOME, SHE DRESSED HERSELF DISCHARGE INSTRUCTIONS GIVEN TO PT SHE VOICED UNDERSTANDING.
--- NOTE | 2022-03-19 07:59 | OR ---
[facility] [address], [place] [address] Signed DATE OF OPERATION: 03/18/2022 SURGEON: Parmjit Bryan MD PREOPERATIVE DIAGNOSES: 1. Personal history of left breast cancer. 2. Right internal jugular mwug-G-luthunvt. POSTOPERATIVE DIAGNOSES: 1. Personal history of left breast cancer. 2. Right internal jugular vsuq-C-bsdojwii. PROCEDURE: Removal of right IJ ndkr-O-ltosxupu. ESTIMATED BLOOD LOSS: None. INDICATIONS: Nolan is a 56-year-old female, who came to us previously for her left breast cancer. She required a right internal jugular ondl-G-bugwhjra for the chemotherapy. She is now recovering nicely from her chemotherapy. She returns to have the nuey-N-eajvxyqs removed. She has been back to work and enjoys that very much. She had no issues with her shyi-O-pcofdtar. I explained to Nolan in the office that removing the ariy-O-mesrgjfh was the opposite steps. We would do it over in the operating room under sterile conditions with good lighting. She understands there is risk including, but not limited to bleeding, infection, scarring, change in contour of the skin as well as catheter embolization requiring removal and air embolization. She had expressed understanding and wished to proceed. DESCRIPTION OF PROCEDURE: I met with Nolan in the preop area. After this, we went into the operating room and she was placed in the supine position under general LMA anesthesia. She was given preoperative antibiotics along with subcutaneous heparin. SCDs were utilized. She was prepped and draped in the usual sterile fashion. She was placed in the slight reverse Trendelenburg position. We utilized her previous oblique subclavicular incision. We opened that up sharply with our 15 blade knife. We carried this down and around the yvzv-P-sksrujay bluntly and with the cautery. The entire pseudocapsule was removed. The catheter was freed up as it traveled underneath the skin over the clavicle. A 2-0 pursestring Prolene suture was placed around the catheter tunnel and the catheter was Electronically Signed By: PARMJIT BRYAN MD 03/19/22 0759 PATIENT NAME: NOLAN PETERSON OPERATIVE REPORT DATE OF : 69 REPORT #: [id number] PHYSICIAN: PARMJIT BRYAN MD PCP: IAM PHELPS MD REPORT IS CONFIDENTIAL AND NOT TO BE RELEASED WITHOUT AUTHORIZATION [facility] [address], [place] [address] Signed removed intact with direct visualization of the tip. The pursestring was tied down with good results. We injected local anesthetic into the operative wound. The wound was irrigated and suctioned out until clear. We freed up some of the fat along the chest wall, so we could bring that together underneath with interrupted 3-0 Monocryl sutures. We brought the dermis together with 3-0 interrupted subcutaneous Monocryl sutures. Skin edges were reapproximated with running 5-0 fast absorbing plain gut suture. Dry gauze and tape were then applied. Nolan was then weaned from her anesthesia, extubated in the OR, and taken to the recovery room in stable condition. Parmjit Bryan MD ALB/MODL /[id number] cc: MD Iam Johnson MD Andrew L Bower, MD Copies: IAM VYAS MD,PARMJIT ROCHA DMD, MD ~ Electronically Signed By: PARMJIT BRYAN MD 03/19/22 0759 PATIENT NAME: NOLAN PETERSON OPERATIVE REPORT DATE OF : 69 REPORT #: [id number] PHYSICIAN: PARMJIT BRYAN MD PCP: IAM PHELPS MD REPORT IS CONFIDENTIAL AND NOT TO BE RELEASED WITHOUT AUTHORIZATION
== END 2022-03-18 13:35 | disposition home or self-care (01) ==
LOC: DS 09:25
PROVIDERS: ATTEND Colon & Rectal Surgery
DX: Z45.2 Encounter for adjustment and management of vascular access device (principal); Z85.3 Personal history of malignant neoplasm of breast
CPT/HCPCS: J0690; J1644; J1885; J2001; J2405; J2704; J3010; J7121